=== PATIENT | female | born 1970 ===

== ENCOUNTER 2019-12-21 20:18 | Inpatient (IN) ==
[2019-12-22] MEDS ORDERED: DEXTROSE 10% 250 ML BAG IV PRN (00:31)
[2019-12-22] MEDS ORDERED: DOCUSATE SODIUM 100 MG CAPSULE PO PRN (00:31)
[2019-12-22] MEDS ORDERED: GLUCAGON 1 MG VIAL IM PRN (00:31)
[2019-12-22] MEDS ORDERED: ONDANSETRON 4 MG/2 ML VIAL IV PRN (00:31)
[2019-12-22 05:32] LABS: Basophils % 0.6 % (0.0-0.8); Eosinophils % 0.3 % (0.00-10.9); Hematocrit 37.8 VOL% (35.7-47.0); Hemoglobin 12.4 GM/DL (12.0-16.0); Immature Granulocytes % 0.6 %; Immature Granulocytes Absolute 0.02 #; Lymphocytes % 29.8 % (21.3-54.2); Mean Corpuscular HGB Conc 32.8 GM/DL (32-36); Mean Corpuscular Volume 83.1 FL (87-102); Mean Platelet Volume 10.7 FL (9.6-12.0); Monocytes % 8.8 % (1.7-12.7); Neutrophils % 59.9 % (38.7-73.9); Platelet Count 150 T/CUMM (130-400); Red Blood Count 4.55 MC/CUMM (3.8-5.5); Red Cell Distribution Width 13.6 % (9.3-17.3); White Blood Count 3.4 T/CUMM (4-12)
[2019-12-22] MEDS: ENOXAPARIN 40 MG/0.4 ML SYRINGE SUBCUT SCH (05:46)
[2019-12-22 05:52] LABS: Albumin 2.6 G/DL (3.4-5.0); Calcium 8.3 MG/DL (8.5-10.1); Osmolality,Calculated 280.4 MOS/KG (273-304); Total Protein 7.8 G/DL (6.4-8.3)
[2019-12-22 06:05] LABS: Lymphocytes 24 % (20-55); Platelet Estimate Adequate; Segmented Neutrophils 70 % (50-85); Total Cells Counted 100
[2019-12-22 06:14] LABS: Ferritin 941.3 ng/ml (8-252)
[2019-12-22] MEDS ORDERED: AZITHROMYCIN 250 MG TABLET PO SCH ×2 (09:00)
[2019-12-22] MEDS: HYDROXYCHLOROQUINE 200 MG TABLET PO SCH ×2 (09:01→21:35)
[2019-12-22] MEDS: ZINC SULFATE 220 MG CAPSULE PO SCH (09:01)
[2019-12-22] MEDS: INSULIN LISPRO 100 UNIT/ML SUBCUT SCH ×5 (09:57→21:51)
[2019-12-22] MEDS: PANTOPRAZOLE 40 MG TABLET PO SCH (11:11)
[2019-12-22] MEDS ORDERED: FLUTICASONE/SALMETEROL 100-50 DISKUS 14 DOSE INH PRN (14:50)
[2019-12-22] MEDS ORDERED: GABAPENTIN 300 MG CAPSULE PO PRN (14:50)
[2019-12-22] MEDS: ALBUTEROL INHALER 18 GM INH SCH ×3 (17:57→20:00)
[2019-12-22] MEDS: cefTRIAXone 1,000 MG in SYRINGE 1 EACH IV SCH (17:59)
[2019-12-22] MEDS: DOCUSATE SODIUM 100 MG CAPSULE PO SCH (21:34)
[2019-12-22] MEDS: SIMVASTATIN 20 MG TABLET PO SCH (21:35)
[2019-12-22] MEDS: INSULIN GLARGINE 100 UNIT/ML SUBCUT SCH (21:36)
[2019-12-23] MEDS: ALBUTEROL INHALER 18 GM INH SCH ×4 (01:05→21:20)
[2019-12-23 05:12] LABS: Basophils % 0.3 % (0.0-0.8); Hematocrit 38.9 VOL% (35.7-47.0); Hemoglobin 12.8 GM/DL (12.0-16.0); Immature Granulocytes % 0.5 %; Immature Granulocytes Absolute 0.02 #; Lymphocytes # 1.1 10*3/uL (1.4-4.0); Lymphocytes % 27.3 % (21.3-54.2); Mean Corpuscular HGB Conc 32.9 GM/DL (32-36); Mean Corpuscular Volume 83.5 FL (87-102); Mean Platelet Volume 10.4 FL (9.6-12.0); Neutrophils % 61.9 % (38.7-73.9); Platelet Count 184 T/CUMM (130-400); Red Blood Count 4.66 MC/CUMM (3.8-5.5); Red Cell Distribution Width 13.5 % (9.3-17.3)
[2019-12-23 05:42] LABS: Albumin 2.5 G/DL (3.4-5.0); Bilirubin,Total 1.3 MG/DL (0.2-1.0); Calcium 8.8 MG/DL (8.5-10.1); Osmolality,Calculated 265.5 MOS/KG (273-304); Total Protein 8.1 G/DL (6.4-8.3)
[2019-12-23] MEDS: ENOXAPARIN 40 MG/0.4 ML SYRINGE SUBCUT SCH (06:35)
[2019-12-23] MEDS: MELOXICAM 7.5 MG TABLET PO SCH (08:56)
[2019-12-23] MEDS: DOCUSATE SODIUM 100 MG CAPSULE PO SCH ×2 (08:56→21:20)
[2019-12-23] MEDS: PANTOPRAZOLE 40 MG TABLET PO SCH (08:56)
[2019-12-23] MEDS ORDERED: PANTOPRAZOLE 40 MG TABLET PO SCH (09:00)
[2019-12-23] MEDS: INSULIN LISPRO 100 UNIT/ML SUBCUT SCH ×6 (09:59→21:58)
[2019-12-23] MEDS: amLODIPine 5 MG TABLET PO SCH (10:59)
[2019-12-23] MEDS: HYDROXYCHLOROQUINE 200 MG TABLET PO SCH ×2 (10:59→21:20)
[2019-12-23] MEDS: cefTRIAXone 1,000 MG in SYRINGE 1 EACH IV SCH (17:29)
[2019-12-23] MEDS: SIMVASTATIN 20 MG TABLET PO SCH (21:20)
[2019-12-23] MEDS: INSULIN GLARGINE 100 UNIT/ML SUBCUT SCH (21:58)
[2019-12-24] MEDS: ALBUTEROL INHALER 18 GM INH SCH ×4 (00:20→20:42)
[2019-12-24] MEDS: ENOXAPARIN 40 MG/0.4 ML SYRINGE SUBCUT SCH (06:00)
[2019-12-24 06:13] LABS: Basophils % 0.2 % (0.0-0.8); Eosinophils % 0.6 % (0.00-10.9); Hemoglobin 12.5 GM/DL (12.0-16.0); Immature Granulocytes % 0.8 %; Immature Granulocytes Absolute 0.04 #; Lymphocytes # 1.1 10*3/uL (1.4-4.0); Lymphocytes % 23.1 % (21.3-54.2); Mean Corpuscular HGB Conc 32.1 GM/DL (32-36); Mean Corpuscular Volume 83.7 FL (87-102); Mean Platelet Volume 10.1 FL (9.6-12.0); Monocytes % 8.7 % (1.7-12.7); Neutrophils % 66.6 % (38.7-73.9); Platelet Count 231 T/CUMM (130-400); Red Blood Count 4.66 MC/CUMM (3.8-5.5); Red Cell Distribution Width 13.6 % (9.3-17.3); White Blood Count 4.7 T/CUMM (4-12)
[2019-12-24 07:11] LABS: Band Neutrophils 2 % (0-10); Lymphocytes 18 % (20-55); Segmented Neutrophils 69 % (50-85); Total Cells Counted 100
[2019-12-24 07:12] LABS: Hypochromasia 1+; Microcytosis Slight; Platelet Estimate Normal
[2019-12-24 08:28] LABS: Calcium 8.6 MG/DL (8.5-10.1); Osmolality,Calculated 265.5 MOS/KG (273-304)
[2019-12-24] MEDS: MELOXICAM 7.5 MG TABLET PO SCH (08:29)
[2019-12-24] MEDS: DOCUSATE SODIUM 100 MG CAPSULE PO SCH ×2 (08:29→20:43)
[2019-12-24] MEDS: ZINC SULFATE 220 MG CAPSULE PO SCH (08:29)
[2019-12-24] MEDS: PANTOPRAZOLE 40 MG TABLET PO SCH (08:29)
[2019-12-24] MEDS: amLODIPine 5 MG TABLET PO SCH (08:29)
[2019-12-24] MEDS: HYDROXYCHLOROQUINE 200 MG TABLET PO SCH ×2 (08:29→20:42)
[2019-12-24] MEDS: INSULIN LISPRO 100 UNIT/ML SUBCUT SCH ×6 (09:26→21:01)
[2019-12-24] MEDS ORDERED: ALUMINUM/MAGNES/SIMETH MAX STR 30 ML UDCUP PO PRN (12:45)
[2019-12-24] MEDS: cefTRIAXone 1,000 MG in SYRINGE 1 EACH IV SCH (18:54)
[2019-12-24] MEDS: SIMVASTATIN 20 MG TABLET PO SCH (20:42)
[2019-12-24] MEDS: INSULIN GLARGINE 100 UNIT/ML SUBCUT SCH (21:23)
[2019-12-25] MEDS: ALBUTEROL INHALER 18 GM INH SCH ×4 (01:16→21:46)
[2019-12-25] MEDS: ENOXAPARIN 40 MG/0.4 ML SYRINGE SUBCUT SCH (05:20)
[2019-12-25 06:35] LABS: Basophils % 0.2 % (0.0-0.8); Eosinophils # 0.1 10*3/uL (0.0-0.87); Hematocrit 38.4 VOL% (35.7-47.0); Hemoglobin 12.4 GM/DL (12.0-16.0); Immature Granulocytes % 0.9 %; Immature Granulocytes Absolute 0.05 #; Lymphocytes # 1.2 10*3/uL (1.4-4.0); Lymphocytes % 19.7 % (21.3-54.2); Mean Corpuscular HGB Conc 32.3 GM/DL (32-36); Mean Corpuscular Volume 84.6 FL (87-102); Mean Platelet Volume 9.9 FL (9.6-12.0); Monocytes % 8.6 % (1.7-12.7); Neutrophils % 69.6 % (38.7-73.9); Platelet Count 280 T/CUMM (130-400); Red Blood Count 4.54 MC/CUMM (3.8-5.5); Red Cell Distribution Width 13.4 % (9.3-17.3); White Blood Count 5.8 T/CUMM (4-12)
[2019-12-25 06:58] LABS: Calcium 8.5 MG/DL (8.5-10.1); Osmolality,Calculated 267.4 MOS/KG (273-304)
[2019-12-25 07:45] LABS: Platelet Estimate Normal
[2019-12-25] MEDS: DOCUSATE SODIUM 100 MG CAPSULE PO SCH ×2 (09:46→21:30)
[2019-12-25] MEDS: INSULIN LISPRO 100 UNIT/ML SUBCUT SCH ×6 (09:46→23:25)
[2019-12-25] MEDS: HYDROXYCHLOROQUINE 200 MG TABLET PO SCH ×2 (09:47→21:31)
[2019-12-25] MEDS: MELOXICAM 7.5 MG TABLET PO SCH (09:47)
[2019-12-25] MEDS: amLODIPine 5 MG TABLET PO SCH (09:47)
[2019-12-25] MEDS: PANTOPRAZOLE 40 MG TABLET PO SCH (09:47)
[2019-12-25] MEDS: cefTRIAXone 1,000 MG in SYRINGE 1 EACH IV SCH (18:55)
[2019-12-25] MEDS: SIMVASTATIN 20 MG TABLET PO SCH (21:31)
[2019-12-25] MEDS: INSULIN GLARGINE 100 UNIT/ML SUBCUT SCH (23:25)
[2019-12-26] MEDS: ALBUTEROL INHALER 18 GM INH SCH ×4 (01:16→19:05)
[2019-12-26] MEDS: ENOXAPARIN 40 MG/0.4 ML SYRINGE SUBCUT SCH (05:16)
[2019-12-26] MEDS: ACETAMINOPHEN 325 MG TABLET PO PRN (05:17)
[2019-12-26 07:21] LABS: Calcium 8.8 MG/DL (8.5-10.1); Osmolality,Calculated 266.4 MOS/KG (273-304)
[2019-12-26] MEDS ORDERED: PHENOL 1.4% THROAT SPRAY 177 ML BOTTLE PO PRN (09:41)
[2019-12-26] MEDS: DOCUSATE SODIUM 100 MG CAPSULE PO SCH ×3 (09:45→20:39)
[2019-12-26] MEDS: INSULIN LISPRO 100 UNIT/ML SUBCUT SCH ×6 (09:45→20:39)
[2019-12-26] MEDS: amLODIPine 5 MG TABLET PO SCH (09:46)
[2019-12-26] MEDS: HYDROXYCHLOROQUINE 200 MG TABLET PO SCH ×2 (09:46→20:39)
[2019-12-26] MEDS: MELOXICAM 7.5 MG TABLET PO SCH (09:46)
[2019-12-26] MEDS: PANTOPRAZOLE 40 MG TABLET PO SCH (09:46)
[2019-12-26] MEDS: ZINC SULFATE 220 MG CAPSULE PO SCH (09:47)
[2019-12-26] MEDS: cefTRIAXone 1,000 MG in SYRINGE 1 EACH IV SCH (17:19)
[2019-12-26] MEDS: INSULIN GLARGINE 100 UNIT/ML SUBCUT SCH (20:39)
[2019-12-26] MEDS: SIMVASTATIN 20 MG TABLET PO SCH (20:39)
[2019-12-27] MEDS: ALBUTEROL INHALER 18 GM INH SCH ×4 (01:58→18:55)
[2019-12-27] MEDS: ENOXAPARIN 40 MG/0.4 ML SYRINGE SUBCUT SCH (06:24)
[2019-12-27 07:23] LABS: Basophils % 0.4 % (0.0-0.8); Eosinophils # 0.2 10*3/uL (0.0-0.87); Eosinophils % 1.5 % (0.00-10.9); Hematocrit 37.7 VOL% (35.7-47.0); Hemoglobin 12.6 GM/DL (12.0-16.0); Immature Granulocytes % 2.5 %; Immature Granulocytes Absolute 0.25 #; Lymphocytes # 1.4 10*3/uL (1.4-4.0); Lymphocytes % 13.6 % (21.3-54.2); Mean Corpuscular HGB Conc 33.4 GM/DL (32-36); Mean Corpuscular Volume 81.6 FL (87-102); Mean Platelet Volume 9.5 FL (9.6-12.0); Monocytes % 8.1 % (1.7-12.7); Neutrophils % 73.9 % (38.7-73.9); Red Blood Count 4.62 MC/CUMM (3.8-5.5); Red Cell Distribution Width 13.3 % (9.3-17.3)
[2019-12-27 07:24] LABS: Calcium 9.1 MG/DL (8.5-10.1); Osmolality,Calculated 258.7 MOS/KG (273-304)
[2019-12-27 07:28] LABS: Platelet Count 410 T/CUMM (130-400)
[2019-12-27 07:50] LABS: Band Neutrophils 6 % (0-10); Eosinophils 2 % (0-10); Lymphocytes 12 % (20-55); Metamyelocytes 2 %; Nucleated Red Blood Cells 1 (0-5); Segmented Neutrophils 71 % (50-85); Total Cells Counted 100
[2019-12-27 07:51] LABS: Anisocytosis Slight; Platelet Estimate Normal
[2019-12-27] MEDS: INSULIN LISPRO 100 UNIT/ML SUBCUT SCH ×6 (08:39→22:47)
[2019-12-27] MEDS: DOCUSATE SODIUM 100 MG CAPSULE PO SCH ×2 (09:28→20:40)
[2019-12-27] MEDS: MELOXICAM 7.5 MG TABLET PO SCH (09:29)
[2019-12-27] MEDS: amLODIPine 5 MG TABLET PO SCH (09:29)
[2019-12-27] MEDS: HYDROXYCHLOROQUINE 200 MG TABLET PO SCH ×2 (09:29→20:40)
[2019-12-27] MEDS: PANTOPRAZOLE 40 MG TABLET PO SCH (09:30)
[2019-12-27] MEDS: cefTRIAXone 1,000 MG in SYRINGE 1 EACH IV SCH (17:00)
[2019-12-27] MEDS: SIMVASTATIN 20 MG TABLET PO SCH (20:40)
[2019-12-27] MEDS ORDERED: CYCLOBENZAPRINE 10 MG TABLET PO SCH (21:00)
[2019-12-27 21:19] LABS: ABG Base Excess -1.1 MMOL/L (-2.5-2.5); ABG HCO3 22.1 MMOL/L (20-26); ABG Oxygen Saturation 86.6 % (95-100); ABG PCO2 32.2 MM HG (35-48); ABG PH 7.454 (7.35-7.45); ABG PO2 51.5 MM HG (80-95); ABG TCO2 23.1 MMOL/L (23-27); Pt O2 Delivery Device Other
[2019-12-27] MEDS: INSULIN GLARGINE 100 UNIT/ML SUBCUT SCH (22:47)
[2019-12-28] MEDS: ALBUTEROL INHALER 18 GM INH SCH ×4 (00:55→23:55)
[2019-12-28] MEDS: ENOXAPARIN 40 MG/0.4 ML SYRINGE SUBCUT SCH (05:31)
[2019-12-28 07:28] LABS: Calcium 8.8 MG/DL (8.5-10.1); Osmolality,Calculated 253.2 MOS/KG (273-304)
[2019-12-28] MEDS: INSULIN LISPRO 100 UNIT/ML SUBCUT SCH ×6 (08:45→22:34)
[2019-12-28] MEDS: amLODIPine 5 MG TABLET PO SCH (08:46)
[2019-12-28] MEDS: MELOXICAM 7.5 MG TABLET PO SCH (08:46)
[2019-12-28] MEDS: DOCUSATE SODIUM 100 MG CAPSULE PO SCH ×2 (08:46→20:05)
[2019-12-28] MEDS: PANTOPRAZOLE 40 MG TABLET PO SCH (08:46)
[2019-12-28] MEDS: HYDROXYCHLOROQUINE 200 MG TABLET PO SCH ×2 (08:46→20:05)
[2019-12-28 10:42] LABS: ABG Base Excess 0.7 MMOL/L (-2.5-2.5); ABG HCO3 24.9 MMOL/L (20-26); ABG Oxygen Saturation 88.5 % (95-100); ABG PCO2 36.6 MM HG (35-48); ABG PH 7.435 (7.35-7.45); ABG PO2 54.4 MM HG (80-95); ABG TCO2 21.8 MMOL/L (23-27)
[2019-12-28] MEDS ORDERED: SUCCINYLCHOLINE 200 MG/10 ML VIAL ONE (11:43)
[2019-12-28] MEDS ORDERED: propofoL 200 MG/20 ML VIAL IV ONE (12:00)
[2019-12-28] MEDS ORDERED: SUCCINYLCHOLINE 200 MG/10 ML VIAL IV ONE (12:00)
[2019-12-28] MEDS ORDERED: fentaNYL 100 MCG/2 ML VIAL IV ONE (12:30)
[2019-12-28 13:02] LABS: ABG Base Excess -1.6 MMOL/L (-2.5-2.5); ABG Oxygen Saturation 93.3 % (95-100); ABG PCO2 47.7 MM HG (35-48); ABG PH 7.326 (7.35-7.45); ABG PO2 73.1 MM HG (80-95); ABG TCO2 22.1 MMOL/L (23-27)
[2019-12-28] MEDS ORDERED: SODIUM CHLORIDE 0.9% 1,000 ML IV PRN (13:06)
[2019-12-28] MEDS ORDERED: HEPARIN/NACL 0.9% 2 UNITS/ML 500 ML IV ONE (13:48)
[2019-12-28] MEDS: fentaNYL INJ 1,250 MCG in SODIUM CHLORIDE 0.9% 225 ML IV PRN (14:00)
[2019-12-28] MEDS ORDERED: HEPARIN/NACL 0.9% 2 UNITS/ML 500 ML IV SCH (14:00)
[2019-12-28 19:14] LABS: Allen Test Positive; Pt O2 Delivery Device Ventilator
[2019-12-28 19:18] LABS: ABG Base Excess -1.5 MMOL/L (-2.5-2.5); ABG HCO3 22.9 MMOL/L (20-26); ABG PCO2 40.7 MM HG (35-48); ABG PH 7.372 (7.35-7.45); ABG PO2 54.7 MM HG (80-95); ABG TCO2 21.1 MMOL/L (23-27)
[2019-12-28] MEDS: SIMVASTATIN 20 MG TABLET PO SCH (20:05)
[2019-12-28] MEDS: cefTRIAXone 1,000 MG in SYRINGE 1 EACH IV SCH (20:05)
[2019-12-28] MEDS ORDERED: CISATRACURIUM 200 MG in SODIUM CHLORIDE 0.9% 180 ML IV PRN (20:47)
[2019-12-28] MEDS: ROCURONIUM 500 MG in SODIUM CHLORIDE 0.9% 500 ML IV PRN (21:22)
[2019-12-28] MEDS ORDERED: DOPamine 800 MG/250 ML PREMIX IV PRN (22:21)
[2019-12-28] MEDS: INSULIN GLARGINE 100 UNIT/ML SUBCUT SCH (22:34)
[2019-12-29] MEDS: INSULIN LISPRO 100 UNIT/ML SUBCUT SCH ×6 (00:32→21:19)
[2019-12-29] MEDS: fentaNYL INJ 1,250 MCG in SODIUM CHLORIDE 0.9% 225 ML IV PRN ×2 (01:41→16:25)
[2019-12-29 04:40] LABS: ABG Base Excess -3.5 MMOL/L (-2.5-2.5); ABG HCO3 23.5 MMOL/L (20-26); ABG Oxygen Saturation 94.3 % (95-100); ABG PCO2 51.6 MM HG (35-48); ABG PH 7.277 (7.35-7.45); ABG PO2 78.6 MM HG (80-95); ABG TCO2 25.1 MMOL/L (23-27); Allen Test Positive; Pt O2 Delivery Device Ventilator
[2019-12-29 06:04] LABS: Basophils % 0.4 % (0.0-0.8); Eosinophils # 0.3 10*3/uL (0.0-0.87); Eosinophils % 2.4 % (0.00-10.9); Hematocrit 32.8 VOL% (35.7-47.0); Hemoglobin 10.5 GM/DL (12.0-16.0); Immature Granulocytes % 4.3 %; Immature Granulocytes Absolute 0.47 #; Lymphocytes # 1.1 10*3/uL (1.4-4.0); Lymphocytes % 10.1 % (21.3-54.2); Mean Corpuscular Volume 84.8 FL (87-102); Mean Platelet Volume 9.1 FL (9.6-12.0); Monocytes % 9.4 % (1.7-12.7); Neutrophils % 73.4 % (38.7-73.9); Platelet Count 351 T/CUMM (130-400); Red Blood Count 3.87 MC/CUMM (3.8-5.5); Red Cell Distribution Width 13.3 % (9.3-17.3)
[2019-12-29] MEDS: ALBUTEROL INHALER 18 GM INH SCH ×3 (06:10→21:52)
[2019-12-29] MEDS: ENOXAPARIN 40 MG/0.4 ML SYRINGE SUBCUT SCH (06:11)
[2019-12-29] MEDS ORDERED: GLUCAGON 1 MG VIAL IM PRN (08:11)
[2019-12-29] MEDS ORDERED: DEXTROSE 50% 25 GM/50 ML VIAL IV PRN (08:11)
[2019-12-29] MEDS: DOCUSATE SODIUM 100 MG CAPSULE PO SCH ×2 (08:38→21:19)
[2019-12-29] MEDS: PANTOPRAZOLE 40 MG VIAL IV SCH (08:38)
[2019-12-29] MEDS: HYDROXYCHLOROQUINE 200 MG TABLET PO SCH ×2 (08:38→21:19)
[2019-12-29] MEDS ORDERED: ETOMIDATE 20 MG/10 ML VIAL IV ONE (09:53)
[2019-12-29] MEDS ORDERED: SUCCINYLCHOLINE 200 MG/10 ML VIAL ONE (09:55)
[2019-12-29] MEDS: methylPREDNISolone SOD SUC 40 MG/1 ML VIAL IV SCH ×2 (10:00→17:41)
[2019-12-29] MEDS: ENOXAPARIN 100 MG/ML SYRINGE SUBCUT SCH ×2 (12:20→21:19)
[2019-12-29] MEDS: ROCURONIUM 500 MG in SODIUM CHLORIDE 0.9% 500 ML IV PRN (12:20)
[2019-12-29] MEDS: cefTRIAXone 1,000 MG in SYRINGE 1 EACH IV SCH (17:39)
[2019-12-29] MEDS: SIMVASTATIN 20 MG TABLET PO SCH (21:19)
[2019-12-29] MEDS: INSULIN GLARGINE 100 UNIT/ML SUBCUT SCH (21:19)
[2019-12-29 21:53] LABS: Calcium 8.3 MG/DL (8.5-10.1); Osmolality,Calculated 270.9 MOS/KG (273-304)
[2019-12-30] MEDS: INSULIN LISPRO 100 UNIT/ML SUBCUT SCH ×7 (00:45→23:49)
[2019-12-30] MEDS: ALBUTEROL INHALER 18 GM INH SCH ×4 (00:46→21:30)
[2019-12-30] MEDS: methylPREDNISolone SOD SUC 40 MG/1 ML VIAL IV SCH ×3 (01:07→17:51)
[2019-12-30] MEDS: ROCURONIUM 500 MG in SODIUM CHLORIDE 0.9% 500 ML IV PRN (03:17)
[2019-12-30 05:28] LABS: Basophils % 0.3 % (0.0-0.8); Hematocrit 31.9 VOL% (35.7-47.0); Hemoglobin 10.4 GM/DL (12.0-16.0); Immature Granulocytes % 5.3 %; Immature Granulocytes Absolute 0.49 #; Lymphocytes # 0.7 10*3/uL (1.4-4.0); Mean Corpuscular HGB Conc 32.6 GM/DL (32-36); Mean Corpuscular Volume 83.5 FL (87-102); Mean Platelet Volume 9.1 FL (9.6-12.0); Monocytes % 7.8 % (1.7-12.7); Neutrophils % 78.6 % (38.7-73.9); Platelet Count 388 T/CUMM (130-400); Red Blood Count 3.82 MC/CUMM (3.8-5.5); Red Cell Distribution Width 12.9 % (9.3-17.3); White Blood Count 9.2 T/CUMM (4-12)
[2019-12-30 05:54] LABS: Calcium 8.2 MG/DL (8.5-10.1); Osmolality,Calculated 270.1 MOS/KG (273-304)
[2019-12-30 05:57] LABS: Band Neutrophils 2 % (0-10); Hypochromasia 1+; Lymphocytes 4 % (20-55); Platelet Estimate Adequate; Segmented Neutrophils 85 % (50-85); Total Cells Counted 100
[2019-12-30] MEDS: fentaNYL INJ 1,250 MCG in SODIUM CHLORIDE 0.9% 225 ML IV PRN (06:36)
[2019-12-30 08:56] LABS: ABG HCO3 18.4 MMOL/L (20-26); ABG Oxygen Saturation 98.6 % (95-100); ABG PCO2 46.1 MM HG (35-48); ABG PH 7.219 (7.35-7.45); ABG PO2 162.2 MM HG (80-95); ABG TCO2 19.8 MMOL/L (23-27); Allen Test Positive; Pt O2 Delivery Device Ventilator
[2019-12-30] MEDS: ENOXAPARIN 100 MG/ML SYRINGE SUBCUT SCH ×2 (09:34→21:30)
[2019-12-30] MEDS: HYDROXYCHLOROQUINE 200 MG TABLET PO SCH ×2 (09:34→21:30)
[2019-12-30] MEDS: DOCUSATE SODIUM 100 MG CAPSULE PO SCH ×2 (09:34→21:30)
[2019-12-30] MEDS: ZINC GLUCONATE 50 MG TABLET PO SCH (09:35)
[2019-12-30] MEDS: PANTOPRAZOLE 40 MG VIAL IV SCH (09:35)
[2019-12-30] MEDS: cefTRIAXone 1,000 MG in SYRINGE 1 EACH IV SCH (17:51)
[2019-12-30] MEDS: SIMVASTATIN 20 MG TABLET PO SCH (21:30)
[2019-12-30] MEDS: INSULIN GLARGINE 100 UNIT/ML SUBCUT SCH (21:30)
[2019-12-31] MEDS: methylPREDNISolone SOD SUC 40 MG/1 ML VIAL IV SCH ×3 (01:10→18:15)
[2019-12-31] MEDS: ALBUTEROL INHALER 18 GM INH SCH ×4 (01:55→20:07)
[2019-12-31 05:40] LABS: Hematocrit 29.7 VOL% (35.7-47.0); Hemoglobin 9.8 GM/DL (12.0-16.0); Immature Granulocytes % 5.3 %; Immature Granulocytes Absolute 0.49 #; Lymphocytes # 0.6 10*3/uL (1.4-4.0); Mean Corpuscular Volume 82.7 FL (87-102); Mean Platelet Volume 9.3 FL (9.6-12.0); Monocytes % 10.2 % (1.7-12.7); Neutrophils % 77.5 % (38.7-73.9); Platelet Count 417 T/CUMM (130-400); Red Blood Count 3.59 MC/CUMM (3.8-5.5); Red Cell Distribution Width 13.1 % (9.3-17.3); White Blood Count 9.2 T/CUMM (4-12)
[2019-12-31 06:01] LABS: Band Neutrophils 2 % (0-10); Hypochromasia 1+; Lymphocytes 9 % (20-55); Platelet Estimate Adequate; Segmented Neutrophils 80 % (50-85); Total Cells Counted 100
[2019-12-31 06:04] LABS: Calcium 8.3 MG/DL (8.5-10.1); Osmolality,Calculated 281.7 MOS/KG (273-304)
[2019-12-31] MEDS: INSULIN LISPRO 100 UNIT/ML SUBCUT SCH ×5 (06:27→20:08)
[2019-12-31] MEDS: fentaNYL INJ 1,250 MCG in SODIUM CHLORIDE 0.9% 225 ML IV PRN (09:15)
[2019-12-31] MEDS: PANTOPRAZOLE 40 MG VIAL IV SCH (09:40)
[2019-12-31] MEDS: DOCUSATE SODIUM 100 MG CAPSULE PO SCH ×2 (09:45→20:07)
[2019-12-31] MEDS: ZINC GLUCONATE 50 MG TABLET PO SCH (09:45)
[2019-12-31] MEDS: HYDROXYCHLOROQUINE 200 MG TABLET PO SCH ×2 (09:45→20:08)
[2019-12-31 10:30] LABS: ABG Base Excess -8.9 MMOL/L (-2.5-2.5); ABG HCO3 17.2 MMOL/L (20-26); ABG Oxygen Saturation 89.5 % (95-100); ABG PCO2 43.3 MM HG (35-48); ABG PH 7.236 (7.35-7.45); ABG PO2 64.3 MM HG (80-95)
[2019-12-31] MEDS: cefTRIAXone 1,000 MG in SYRINGE 1 EACH IV SCH (18:15)
[2019-12-31] MEDS: SIMVASTATIN 20 MG TABLET PO SCH (20:08)
[2019-12-31] MEDS: INSULIN GLARGINE 100 UNIT/ML SUBCUT SCH (20:08)
[2019-12-31] MEDS: ENOXAPARIN 100 MG/ML SYRINGE SUBCUT SCH (20:08)
[2020-01-01] MEDS: INSULIN LISPRO 100 UNIT/ML SUBCUT SCH ×7 (00:05→23:49)
[2020-01-01] MEDS: fentaNYL INJ 1,250 MCG in SODIUM CHLORIDE 0.9% 225 ML IV PRN ×3 (02:18→19:05)
[2020-01-01] MEDS: ALBUTEROL INHALER 18 GM INH SCH ×3 (02:18→13:00)
[2020-01-01] MEDS: methylPREDNISolone SOD SUC 40 MG/1 ML VIAL IV SCH ×3 (02:18→18:15)
[2020-01-01 04:13] LABS: ABG Base Excess -8.4 MMOL/L (-2.5-2.5); ABG HCO3 17.6 MMOL/L (20-26); ABG Oxygen Saturation 96.1 % (95-100); ABG PCO2 50.3 MM HG (35-48); ABG PO2 91.2 MM HG (80-95); ABG TCO2 18.4 MMOL/L (23-27)
[2020-01-01 04:32] LABS: Basophils % 0.3 % (0.0-0.8); Hematocrit 33.7 VOL% (35.7-47.0); Hemoglobin 10.9 GM/DL (12.0-16.0); Immature Granulocytes % 6.1 %; Immature Granulocytes Absolute 0.71 #; Lymphocytes # 0.5 10*3/uL (1.4-4.0); Lymphocytes % 4.5 % (21.3-54.2); Mean Corpuscular HGB Conc 32.3 GM/DL (32-36); Mean Corpuscular Volume 83.6 FL (87-102); Mean Platelet Volume 9.2 FL (9.6-12.0); Monocytes % 11.4 % (1.7-12.7); Neutrophils % 77.7 % (38.7-73.9); Platelet Count 455 T/CUMM (130-400); Red Blood Count 4.03 MC/CUMM (3.8-5.5); Red Cell Distribution Width 13.6 % (9.3-17.3); White Blood Count 11.6 T/CUMM (4-12)
[2020-01-01 05:04] LABS: Lymphocytes 5 % (20-55); Segmented Neutrophils 85 % (50-85); Total Cells Counted 100
[2020-01-01 05:07] LABS: Calcium 8.6 MG/DL (8.5-10.1); Osmolality,Calculated 295.4 MOS/KG (273-304)
[2020-01-01 05:22] LABS: ABG PH 7.202 (7.35-7.45)
[2020-01-01 05:22] LABS: Hypochromasia 1+; Platelet Estimate Increased
[2020-01-01] MEDS: ZINC GLUCONATE 50 MG TABLET PO SCH (08:50)
[2020-01-01] MEDS: DOCUSATE SODIUM 100 MG CAPSULE PO SCH (08:50)
[2020-01-01] MEDS: HYDROXYCHLOROQUINE 200 MG TABLET PO SCH ×2 (08:50→21:31)
[2020-01-01] MEDS: PANTOPRAZOLE 40 MG VIAL IV SCH (08:50)
[2020-01-01] MEDS: cefTRIAXone 1,000 MG in SYRINGE 1 EACH IV SCH (18:15)
[2020-01-01] MEDS: SIMVASTATIN 20 MG TABLET PO SCH (21:31)
[2020-01-01] MEDS: INSULIN GLARGINE 100 UNIT/ML SUBCUT SCH (21:31)
[2020-01-01] MEDS: DOCUSATE SODIUM 100 MG/10 ML UDCUP PO SCH (21:31)
[2020-01-01] MEDS: ENOXAPARIN 100 MG/ML SYRINGE SUBCUT SCH (21:31)
[2020-01-02] MEDS: methylPREDNISolone SOD SUC 40 MG/1 ML VIAL IV SCH ×2 (02:33→14:50)
[2020-01-02 03:20] LABS: Allen Test Positive; Pt O2 Delivery Device Ventilator
[2020-01-02 03:21] LABS: ABG Base Excess -4.7 MMOL/L (-2.5-2.5); ABG HCO3 20.4 MMOL/L (20-26); ABG Oxygen Saturation 92.4 % (95-100); ABG PCO2 47.9 MM HG (35-48); ABG PH 7.276 (7.35-7.45); ABG PO2 68.1 MM HG (80-95); ABG TCO2 20.4 MMOL/L (23-27)
[2020-01-02 04:40] LABS: Basophils % 0.3 % (0.0-0.8); Hematocrit 31.9 VOL% (35.7-47.0); Hemoglobin 10.1 GM/DL (12.0-16.0); Immature Granulocytes % 2.7 %; Immature Granulocytes Absolute 0.36 #; Lymphocytes # 0.7 10*3/uL (1.4-4.0); Lymphocytes % 5.1 % (21.3-54.2); Mean Corpuscular HGB Conc 31.7 GM/DL (32-36); Mean Corpuscular Volume 86.4 FL (87-102); Mean Platelet Volume 9.2 FL (9.6-12.0); Monocytes % 13.7 % (1.7-12.7); Neutrophils % 78.2 % (38.7-73.9); Platelet Count 350 T/CUMM (130-400); Red Blood Count 3.69 MC/CUMM (3.8-5.5); White Blood Count 13.2 T/CUMM (4-12)
[2020-01-02 04:52] LABS: Calcium 8.9 MG/DL (8.5-10.1); Osmolality,Calculated 305.5 MOS/KG (273-304)
[2020-01-02] MEDS: fentaNYL INJ 1,250 MCG in SODIUM CHLORIDE 0.9% 225 ML IV PRN ×3 (05:30→23:28)
[2020-01-02] MEDS: INSULIN LISPRO 100 UNIT/ML SUBCUT SCH ×5 (06:06→20:57)
[2020-01-02] MEDS: DOCUSATE SODIUM 100 MG/10 ML UDCUP PO SCH ×2 (08:55→20:57)
[2020-01-02] MEDS: HYDROXYCHLOROQUINE 200 MG TABLET PO SCH ×2 (08:55→20:58)
[2020-01-02] MEDS: PANTOPRAZOLE 40 MG VIAL IV SCH (08:56)
[2020-01-02] MEDS: ZINC GLUCONATE 50 MG TABLET PO SCH (08:56)
[2020-01-02] MEDS: cefTRIAXone 1,000 MG in SYRINGE 1 EACH IV SCH (18:30)
[2020-01-02] MEDS: INSULIN GLARGINE 100 UNIT/ML SUBCUT SCH (20:58)
[2020-01-02] MEDS: ENOXAPARIN 100 MG/ML SYRINGE SUBCUT SCH (20:58)
[2020-01-02] MEDS: SIMVASTATIN 20 MG TABLET PO SCH (20:58)
[2020-01-03] MEDS: INSULIN LISPRO 100 UNIT/ML SUBCUT SCH ×7 (00:32→21:17)
[2020-01-03] MEDS: methylPREDNISolone SOD SUC 40 MG/1 ML VIAL IV SCH ×2 (03:45→15:55)
[2020-01-03 04:33] LABS: ABG Base Excess -3.3 MMOL/L (-2.5-2.5); ABG HCO3 21.5 MMOL/L (20-26); ABG Oxygen Saturation 98.7 % (95-100); ABG PCO2 37.3 MM HG (35-48); ABG PH 7.378 (7.35-7.45); ABG PO2 153.2 MM HG (80-95); ABG TCO2 22.6 MMOL/L (23-27); Allen Test Positive; Pt O2 Delivery Device Ventilator
[2020-01-03 04:38] LABS: Basophils % 0.3 % (0.0-0.8); Hematocrit 28.1 VOL% (35.7-47.0); Hemoglobin 8.8 GM/DL (12.0-16.0); Immature Granulocytes % 4.7 %; Immature Granulocytes Absolute 0.47 #; Lymphocytes # 1.4 10*3/uL (1.4-4.0); Lymphocytes % 14.2 % (21.3-54.2); Mean Corpuscular HGB Conc 31.3 GM/DL (32-36); Mean Corpuscular Volume 86.7 FL (87-102); Mean Platelet Volume 9.6 FL (9.6-12.0); Monocytes % 11.4 % (1.7-12.7); NRBC # 0.02 10*3/uL; Neutrophils % 69.4 % (38.7-73.9); Platelet Count 277 T/CUMM (130-400); Red Blood Count 3.24 MC/CUMM (3.8-5.5); Red Cell Distribution Width 14.1 % (9.3-17.3)
[2020-01-03 04:51] LABS: Calcium 9.2 MG/DL (8.5-10.1); Osmolality,Calculated 304.8 MOS/KG (273-304)
[2020-01-03] MEDS: PANTOPRAZOLE 40 MG VIAL IV SCH (08:32)
[2020-01-03] MEDS: DOCUSATE SODIUM 100 MG/10 ML UDCUP PO SCH ×2 (08:32→21:17)
[2020-01-03] MEDS: HYDROXYCHLOROQUINE 200 MG TABLET PO SCH ×2 (08:32→21:19)
[2020-01-03] MEDS: fentaNYL INJ 1,250 MCG in SODIUM CHLORIDE 0.9% 225 ML IV PRN ×2 (09:48→19:30)
[2020-01-03] MEDS: ZINC GLUCONATE 50 MG TABLET PO SCH (12:00)
[2020-01-03] MEDS: INSULIN GLARGINE 100 UNIT/ML SUBCUT SCH (21:18)
[2020-01-03] MEDS: ENOXAPARIN 100 MG/ML SYRINGE SUBCUT SCH (21:18)
[2020-01-03] MEDS: SIMVASTATIN 20 MG TABLET PO SCH (21:19)
[2020-01-04] MEDS: INSULIN LISPRO 100 UNIT/ML SUBCUT SCH ×6 (01:07→21:34)
[2020-01-04] MEDS: fentaNYL INJ 1,250 MCG in SODIUM CHLORIDE 0.9% 225 ML IV PRN ×3 (04:35→20:52)
[2020-01-04] MEDS: methylPREDNISolone SOD SUC 40 MG/1 ML VIAL IV SCH ×2 (05:17→18:23)
[2020-01-04 05:52] LABS: Basophils % 0.3 % (0.0-0.8); Hematocrit 29.4 VOL% (35.7-47.0); Hemoglobin 8.9 GM/DL (12.0-16.0); Immature Granulocytes % 6.4 %; Immature Granulocytes Absolute 0.67 #; Lymphocytes # 1.7 10*3/uL (1.4-4.0); Lymphocytes % 16.4 % (21.3-54.2); Mean Corpuscular HGB Conc 30.3 GM/DL (32-36); Mean Corpuscular Volume 90.2 FL (87-102); Mean Platelet Volume 9.7 FL (9.6-12.0); Monocytes % 10.6 % (1.7-12.7); NRBC # 0.03 10*3/uL; Neutrophils % 66.3 % (38.7-73.9); Platelet Count 274 T/CUMM (130-400); Red Blood Count 3.26 MC/CUMM (3.8-5.5); Red Cell Distribution Width 13.9 % (9.3-17.3); White Blood Count 10.6 T/CUMM (4-12)
[2020-01-04 06:09] LABS: Osmolality,Calculated 306.6 MOS/KG (273-304)
[2020-01-04 06:12] LABS: Band Neutrophils 2 % (0-10); Hypochromasia Slight; Lymphocytes 14 % (20-55); Platelet Estimate Adequate; Segmented Neutrophils 80 % (50-85); Total Cells Counted 100
[2020-01-04] MEDS: hydrALAZINE 20 MG/1 ML VIAL IV PRN (08:07)
[2020-01-04] MEDS: PANTOPRAZOLE 40 MG VIAL IV SCH (08:40)
[2020-01-04] MEDS: DOCUSATE SODIUM 100 MG/10 ML UDCUP PO SCH ×2 (08:40→21:34)
[2020-01-04] MEDS: HYDROXYCHLOROQUINE 200 MG TABLET PO SCH ×2 (08:42→21:34)
[2020-01-04] MEDS: ZINC GLUCONATE 50 MG TABLET PO SCH (08:42)
[2020-01-04 09:23] LABS: ABG Base Excess -3.8 MMOL/L (-2.5-2.5); ABG HCO3 21.2 MMOL/L (20-26); ABG Oxygen Saturation 97.9 % (95-100); ABG PCO2 44.2 MM HG (35-48); ABG PH 7.312 (7.35-7.45); ABG TCO2 20.4 MMOL/L (23-27)
[2020-01-04] MEDS: SIMVASTATIN 20 MG TABLET PO SCH (21:34)
[2020-01-04] MEDS: INSULIN GLARGINE 100 UNIT/ML SUBCUT SCH (21:34)
[2020-01-04] MEDS: ENOXAPARIN 100 MG/ML SYRINGE SUBCUT SCH (21:34)
[2020-01-05] MEDS: INSULIN LISPRO 100 UNIT/ML SUBCUT SCH ×6 (01:16→21:07)
[2020-01-05] MEDS: methylPREDNISolone SOD SUC 40 MG/1 ML VIAL IV SCH ×2 (03:11→14:08)
[2020-01-05] MEDS: fentaNYL INJ 1,250 MCG in SODIUM CHLORIDE 0.9% 225 ML IV PRN ×2 (03:36→20:30)
[2020-01-05 06:10] LABS: Basophils % 0.2 % (0.0-0.8); Eosinophils % 0.2 % (0.00-10.9); Hematocrit 28.5 VOL% (35.7-47.0); Hemoglobin 8.4 GM/DL (12.0-16.0); Immature Granulocytes % 6.5 %; Immature Granulocytes Absolute 0.57 #; Lymphocytes # 1.1 10*3/uL (1.4-4.0); Lymphocytes % 12.8 % (21.3-54.2); Mean Corpuscular HGB Conc 29.5 GM/DL (32-36); Mean Corpuscular Volume 92.2 FL (87-102); Mean Platelet Volume 9.7 FL (9.6-12.0); Monocytes % 8.8 % (1.7-12.7); Neutrophils % 71.5 % (38.7-73.9); Platelet Count 279 T/CUMM (130-400); Red Blood Count 3.09 MC/CUMM (3.8-5.5); Red Cell Distribution Width 13.9 % (9.3-17.3); White Blood Count 8.7 T/CUMM (4-12)
[2020-01-05 06:29] LABS: Calcium 9.2 MG/DL (8.5-10.1); Osmolality,Calculated 298.8 MOS/KG (273-304)
[2020-01-05 06:38] LABS: Band Neutrophils 3 % (0-10); Lymphocytes 9 % (20-55); Metamyelocytes 1 %; Myelocytes 1 %; Nucleated Red Blood Cells 1 (0-5); Segmented Neutrophils 77 % (50-85); Total Cells Counted 100
[2020-01-05 06:39] LABS: Hypochromasia 1+; Microcytosis Slight; Platelet Estimate Normal
[2020-01-05] MEDS: PANTOPRAZOLE 40 MG VIAL IV SCH (09:05)
[2020-01-05] MEDS: ZINC GLUCONATE 50 MG TABLET PO SCH (09:05)
[2020-01-05] MEDS: DOCUSATE SODIUM 100 MG/10 ML UDCUP PO SCH ×2 (09:05→21:07)
[2020-01-05] MEDS: HYDROXYCHLOROQUINE 200 MG TABLET PO SCH ×2 (09:05→21:08)
[2020-01-05 09:09] LABS: ABG Base Excess -4.6 MMOL/L (-2.5-2.5); ABG HCO3 20.3 MMOL/L (20-26); ABG Oxygen Saturation 98.1 % (95-100); ABG PCO2 36.5 MM HG (35-48); ABG PH 7.362 (7.35-7.45); ABG PO2 136.3 MM HG (80-95); ABG TCO2 21.4 MMOL/L (23-27); Pt O2 Delivery Device Ventilator
[2020-01-05] MEDS: INSULIN GLARGINE 100 UNIT/ML SUBCUT SCH (21:07)
[2020-01-05] MEDS: ENOXAPARIN 100 MG/ML SYRINGE SUBCUT SCH (21:08)
[2020-01-05] MEDS: SIMVASTATIN 20 MG TABLET PO SCH (21:08)
[2020-01-06] MEDS: INSULIN LISPRO 100 UNIT/ML SUBCUT SCH ×6 (00:34→20:52)
[2020-01-06 03:46] LABS: ABG HCO3 21.3 MMOL/L (20-26); ABG Oxygen Saturation 97.1 % (95-100); ABG PCO2 39.5 MM HG (35-48); ABG PH 7.349 (7.35-7.45); ABG TCO2 22.5 MMOL/L (23-27); Allen Test Positive; Pt O2 Delivery Device Ventilator
[2020-01-06] MEDS: methylPREDNISolone SOD SUC 40 MG/1 ML VIAL IV SCH ×2 (03:59→14:41)
[2020-01-06 04:55] LABS: Basophils % 0.3 % (0.0-0.8); Eosinophils % 0.1 % (0.00-10.9); Hematocrit 31.4 VOL% (35.7-47.0); Hemoglobin 9.6 GM/DL (12.0-16.0); Immature Granulocytes % 5.9 %; Immature Granulocytes Absolute 0.84 #; Lymphocytes # 1.8 10*3/uL (1.4-4.0); Lymphocytes % 12.9 % (21.3-54.2); Mean Corpuscular HGB Conc 30.6 GM/DL (32-36); Mean Corpuscular Volume 90.2 FL (87-102); Mean Platelet Volume 10.1 FL (9.6-12.0); Monocytes % 11.8 % (1.7-12.7); Platelet Count 299 T/CUMM (130-400); Red Blood Count 3.48 MC/CUMM (3.8-5.5); Red Cell Distribution Width 14.2 % (9.3-17.3); White Blood Count 14.3 T/CUMM (4-12)
[2020-01-06 05:09] LABS: Albumin 2.1 G/DL (3.4-5.0); Bilirubin,Total 0.4 MG/DL (0.2-1.0); Calcium 9.2 MG/DL (8.5-10.1); Osmolality,Calculated 293.1 MOS/KG (273-304); Total Protein 7.7 G/DL (6.4-8.3)
[2020-01-06 05:24] LABS: Band Neutrophils 3 % (0-10); Hypochromasia 1+; Lymphocytes 19 % (20-55); Microcytosis Slight; Ovalocytes Slight; Platelet Estimate Adequate; Segmented Neutrophils 70 % (50-85); Total Cells Counted 100
[2020-01-06] MEDS: fentaNYL INJ 1,250 MCG in SODIUM CHLORIDE 0.9% 225 ML IV PRN ×2 (05:51→17:05)
[2020-01-06] MEDS: DOCUSATE SODIUM 100 MG/10 ML UDCUP PO SCH ×2 (08:13→21:15)
[2020-01-06] MEDS: PANTOPRAZOLE 40 MG VIAL IV SCH (08:13)
[2020-01-06] MEDS: hydrALAZINE 20 MG/1 ML VIAL IV PRN (09:34)
[2020-01-06] MEDS: HYDROXYCHLOROQUINE 200 MG TABLET PO SCH ×2 (09:35→21:15)
[2020-01-06] MEDS: ZINC GLUCONATE 50 MG TABLET PO SCH (09:35)
[2020-01-06] MEDS: INSULIN GLARGINE 100 UNIT/ML SUBCUT SCH (21:15)
[2020-01-06] MEDS: ENOXAPARIN 60 MG/0.6 ML SYRINGE SUBCUT SCH (21:15)
[2020-01-06] MEDS: SIMVASTATIN 20 MG TABLET PO SCH (21:15)
[2020-01-07] MEDS: INSULIN LISPRO 100 UNIT/ML SUBCUT SCH ×6 (00:55→21:33)
[2020-01-07] MEDS: fentaNYL INJ 1,250 MCG in SODIUM CHLORIDE 0.9% 225 ML IV PRN ×2 (03:25→14:42)
[2020-01-07] MEDS: methylPREDNISolone SOD SUC 40 MG/1 ML VIAL IV SCH ×2 (04:03→14:46)
[2020-01-07 05:44] LABS: Basophils % 0.3 % (0.0-0.8); Eosinophils % 0.3 % (0.00-10.9); Hematocrit 30.2 VOL% (35.7-47.0); Hemoglobin 8.9 GM/DL (12.0-16.0); Immature Granulocytes % 1.6 %; Immature Granulocytes Absolute 0.24 #; Lymphocytes # 1.4 10*3/uL (1.4-4.0); Lymphocytes % 9.7 % (21.3-54.2); Mean Corpuscular HGB Conc 29.5 GM/DL (32-36); Mean Corpuscular Volume 93.2 FL (87-102); Monocytes % 6.9 % (1.7-12.7); Neutrophils % 81.2 % (38.7-73.9); Platelet Count 239 T/CUMM (130-400); Red Blood Count 3.24 MC/CUMM (3.8-5.5); Red Cell Distribution Width 14.6 % (9.3-17.3); White Blood Count 14.6 T/CUMM (4-12)
[2020-01-07 06:05] LABS: Calcium 9.1 MG/DL (8.5-10.1)
[2020-01-07] MEDS: HYDROXYCHLOROQUINE 200 MG TABLET PO SCH ×2 (09:45→21:34)
[2020-01-07] MEDS: DOCUSATE SODIUM 100 MG/10 ML UDCUP PO SCH ×2 (09:45→21:34)
[2020-01-07] MEDS: PANTOPRAZOLE 40 MG VIAL IV SCH (09:45)
[2020-01-07] MEDS: ZINC GLUCONATE 50 MG TABLET PO SCH (09:45)
[2020-01-07] MEDS: ENOXAPARIN 60 MG/0.6 ML SYRINGE SUBCUT SCH ×2 (09:55→21:32)
[2020-01-07] MEDS: SIMVASTATIN 20 MG TABLET PO SCH (21:34)
[2020-01-07] MEDS: INSULIN GLARGINE 100 UNIT/ML SUBCUT SCH (21:34)
[2020-01-08] MEDS: INSULIN LISPRO 100 UNIT/ML SUBCUT SCH ×6 (01:25→20:32)
[2020-01-08] MEDS: methylPREDNISolone SOD SUC 40 MG/1 ML VIAL IV SCH (03:30)
[2020-01-08] MEDS: fentaNYL INJ 1,250 MCG in SODIUM CHLORIDE 0.9% 225 ML IV PRN ×3 (03:40→20:49)
[2020-01-08 05:25] LABS: Basophils % 0.1 % (0.0-0.8); Eosinophils % 0.3 % (0.00-10.9); Hematocrit 30.3 VOL% (35.7-47.0); Hemoglobin 8.9 GM/DL (12.0-16.0); Immature Granulocytes % 1.9 %; Immature Granulocytes Absolute 0.26 #; Lymphocytes # 1.3 10*3/uL (1.4-4.0); Lymphocytes % 9.6 % (21.3-54.2); Mean Corpuscular HGB Conc 29.4 GM/DL (32-36); Mean Corpuscular Volume 93.5 FL (87-102); Mean Platelet Volume 10.4 FL (9.6-12.0); Neutrophils % 80.1 % (38.7-73.9); Platelet Count 229 T/CUMM (130-400); Red Blood Count 3.24 MC/CUMM (3.8-5.5); Red Cell Distribution Width 14.5 % (9.3-17.3); White Blood Count 13.4 T/CUMM (4-12)
[2020-01-08] MEDS: PANTOPRAZOLE 40 MG VIAL IV SCH (08:02)
[2020-01-08] MEDS: ENOXAPARIN 60 MG/0.6 ML SYRINGE SUBCUT SCH ×2 (08:02→20:25)
[2020-01-08] MEDS: DOCUSATE SODIUM 100 MG/10 ML UDCUP PO SCH ×2 (09:53→20:25)
[2020-01-08] MEDS: ZINC GLUCONATE 50 MG TABLET PO SCH (09:54)
[2020-01-08] MEDS: HYDROXYCHLOROQUINE 200 MG TABLET PO SCH ×2 (09:54→20:26)
[2020-01-08 10:45] LABS: ABG Base Excess -7.2 MMOL/L (-2.5-2.5); ABG HCO3 18.5 MMOL/L (20-26); ABG Oxygen Saturation 95.6 % (95-100); ABG PCO2 45.9 MM HG (35-48); ABG PH 7.246 (7.35-7.45); ABG PO2 82.1 MM HG (80-95); ABG TCO2 18.7 MMOL/L (23-27)
[2020-01-08 10:46] LABS: Allen Test Positive; Pt O2 Delivery Device CPAP
[2020-01-08 13:20] LABS: Apearance,Urine CLOUDY (Clear); Bacteria,Urine Occasional /HPF (Few); Bilirubin,Urine Negative (Negative); Blood, Urine Moderate mg/dL (Negative); Glucose,Urine (UA) Negative (Negative); Ketones,Urine Negative (Negative); Mucus,Urine Moderate /LPF (Occasional); Nitrite,Urine Positive (Negative); Protein,Urine 30 MG/DL; RBC,Urine 11 /HPF (0-4); Squamous Epithelial Cell,Urine Occasional /HPF (0-10); Urine Color Yellow (Yellow); Urine Specific Gravity 1.016 (1.001-1.035); Urine Urobilinogen < 2.0 EU/DL (0.2-1.0); WBC,Urine 134 /HPF (0-6)
[2020-01-08] MEDS: MEROPENEM 500 MG in SODIUM CHLORIDE 0.9% 100 ML IV SCH (16:22)
[2020-01-08] MEDS: SIMVASTATIN 20 MG TABLET PO SCH (20:26)
[2020-01-08] MEDS: INSULIN GLARGINE 100 UNIT/ML SUBCUT SCH (20:26)
[2020-01-08] MEDS: ACETAMINOPHEN 325 MG TABLET PO PRN (20:32)
[2020-01-09] MEDS: INSULIN LISPRO 100 UNIT/ML SUBCUT SCH ×6 (00:46→23:45)
[2020-01-09] MEDS: MEROPENEM 500 MG in SODIUM CHLORIDE 0.9% 100 ML IV SCH ×4 (00:47→23:30)
[2020-01-09 05:19] LABS: ABG Base Excess -7.2 MMOL/L (-2.5-2.5); ABG HCO3 18.5 MMOL/L (20-26); ABG Oxygen Saturation 98.7 % (95-100); ABG PCO2 37.9 MM HG (35-48); ABG TCO2 17.5 MMOL/L (23-27); Allen Test Positive; Pt O2 Delivery Device Ventilator
[2020-01-09 05:39] LABS: Basophils % 0.2 % (0.0-0.8); Eosinophils # 0.1 10*3/uL (0.0-0.87); Eosinophils % 1.3 % (0.00-10.9); Hematocrit 27.4 VOL% (35.7-47.0); Hemoglobin 8.1 GM/DL (12.0-16.0); Immature Granulocytes % 1.8 %; Immature Granulocytes Absolute 0.18 #; Lymphocytes # 1.2 10*3/uL (1.4-4.0); Lymphocytes % 11.8 % (21.3-54.2); Mean Corpuscular HGB Conc 29.6 GM/DL (32-36); Mean Corpuscular Volume 93.2 FL (87-102); Monocytes % 7.7 % (1.7-12.7); Neutrophils % 77.2 % (38.7-73.9); Platelet Count 206 T/CUMM (130-400); Red Blood Count 2.94 MC/CUMM (3.8-5.5); Red Cell Distribution Width 14.9 % (9.3-17.3); White Blood Count 10.2 T/CUMM (4-12)
[2020-01-09 05:50] LABS: Calcium 9.1 MG/DL (8.5-10.1)
[2020-01-09] MEDS: DOCUSATE SODIUM 100 MG/10 ML UDCUP PO SCH ×2 (09:50→20:58)
[2020-01-09] MEDS: ZINC GLUCONATE 50 MG TABLET PO SCH (09:50)
[2020-01-09] MEDS: HYDROXYCHLOROQUINE 200 MG TABLET PO SCH ×2 (09:50→20:58)
[2020-01-09] MEDS: methylPREDNISolone SOD SUC 40 MG/1 ML VIAL IV SCH (09:51)
[2020-01-09] MEDS: ENOXAPARIN 60 MG/0.6 ML SYRINGE SUBCUT SCH (09:52)
[2020-01-09] MEDS: PANTOPRAZOLE 40 MG VIAL IV SCH (09:52)
[2020-01-09 12:31] LABS: Source URINE
[2020-01-09] MEDS: ENOXAPARIN 30 MG/0.3 ML SYRINGE SUBCUT SCH (20:58)
[2020-01-09] MEDS: SIMVASTATIN 20 MG TABLET PO SCH (20:58)
[2020-01-09] MEDS: INSULIN GLARGINE 100 UNIT/ML SUBCUT SCH (20:59)
[2020-01-09] MEDS: fentaNYL INJ 1,250 MCG in SODIUM CHLORIDE 0.9% 225 ML IV PRN (21:40)
[2020-01-10 04:33] LABS: Calcium 8.9 MG/DL (8.5-10.1); Osmolality,Calculated 293.1 MOS/KG (273-304)
[2020-01-10 04:46] LABS: Basophils % 0.1 % (0.0-0.8); Eosinophils # 0.2 10*3/uL (0.0-0.87); Eosinophils % 2.8 % (0.00-10.9); Hematocrit 26.1 VOL% (35.7-47.0); Hemoglobin 7.5 GM/DL (12.0-16.0); Immature Granulocytes % 1.6 %; Immature Granulocytes Absolute 0.12 #; Lymphocytes # 1.2 10*3/uL (1.4-4.0); Lymphocytes % 15.3 % (21.3-54.2); Mean Corpuscular HGB Conc 28.7 GM/DL (32-36); Mean Corpuscular Volume 95.3 FL (87-102); Mean Platelet Volume 10.8 FL (9.6-12.0); Monocytes % 8.4 % (1.7-12.7); Neutrophils % 71.8 % (38.7-73.9); Platelet Count 190 T/CUMM (130-400); Red Blood Count 2.74 MC/CUMM (3.8-5.5); Red Cell Distribution Width 14.9 % (9.3-17.3); White Blood Count 7.6 T/CUMM (4-12)
[2020-01-10 05:10] LABS: Hypochromasia 1+; Platelet Estimate Adequate
[2020-01-10 05:15] LABS: ABG Base Excess -6.4 MMOL/L (-2.5-2.5); ABG HCO3 19.1 MMOL/L (20-26); ABG Oxygen Saturation 95.7 % (95-100); ABG PCO2 38.4 MM HG (35-48); ABG PH 7.311 (7.35-7.45); ABG PO2 78.9 MM HG (80-95); ABG TCO2 18.3 MMOL/L (23-27); Allen Test Positive; Pt O2 Delivery Device Ventilator
[2020-01-10] MEDS: INSULIN LISPRO 100 UNIT/ML SUBCUT SCH ×3 (06:05→17:19)
[2020-01-10] MEDS: MEROPENEM 500 MG in SODIUM CHLORIDE 0.9% 100 ML IV SCH (07:57)
[2020-01-10] MEDS: ENOXAPARIN 30 MG/0.3 ML SYRINGE SUBCUT SCH ×2 (08:00→20:25)
[2020-01-10] MEDS: HYDROXYCHLOROQUINE 200 MG TABLET PO SCH ×2 (08:00→20:25)
[2020-01-10] MEDS: ZINC GLUCONATE 50 MG TABLET PO SCH (08:00)
[2020-01-10] MEDS: DOCUSATE SODIUM 100 MG/10 ML UDCUP PO SCH ×2 (08:00→20:26)
[2020-01-10] MEDS: methylPREDNISolone SOD SUC 40 MG/1 ML VIAL IV SCH (08:01)
[2020-01-10] MEDS: PANTOPRAZOLE 40 MG VIAL IV SCH (08:04)
[2020-01-10] MEDS: cefTAZidime 2,000 MG in SYRINGE 1 EACH IV SCH ×2 (11:50→23:11)
[2020-01-10] MEDS: fentaNYL INJ 1,250 MCG in SODIUM CHLORIDE 0.9% 225 ML IV PRN (12:10)
[2020-01-10] MEDS ORDERED: DEXMEDETOMIDINE 400 MCG in SODIUM CHLORIDE 0.9% 96 ML IV PRN (19:55)
[2020-01-10] MEDS: SIMVASTATIN 20 MG TABLET PO SCH (20:25)
[2020-01-10] MEDS: INSULIN GLARGINE 100 UNIT/ML SUBCUT SCH (20:26)
[2020-01-11] MEDS: INSULIN LISPRO 100 UNIT/ML SUBCUT SCH ×5 (00:45→17:12)
[2020-01-11 04:53] LABS: Basophils % 0.3 % (0.0-0.8); Eosinophils # 0.3 10*3/uL (0.0-0.87); Eosinophils % 2.9 % (0.00-10.9); Hematocrit 26.7 VOL% (35.7-47.0); Immature Granulocytes Absolute 0.18 #; Lymphocytes # 1.3 10*3/uL (1.4-4.0); Lymphocytes % 14.1 % (21.3-54.2); Mean Corpuscular Volume 91.8 FL (87-102); Mean Platelet Volume 10.2 FL (9.6-12.0); Monocytes % 6.6 % (1.7-12.7); Neutrophils % 74.1 % (38.7-73.9); Platelet Count 225 T/CUMM (130-400); Red Blood Count 2.91 MC/CUMM (3.8-5.5)
[2020-01-11 05:11] LABS: Calcium 9.2 MG/DL (8.5-10.1)
[2020-01-11 05:25] LABS: Allen Test Positive; Pt O2 Delivery Device Ventilator
[2020-01-11 05:26] LABS: ABG Base Excess -6.7 MMOL/L (-2.5-2.5); ABG HCO3 18.7 MMOL/L (20-26); ABG Oxygen Saturation 98.7 % (95-100); ABG PCO2 36.6 MM HG (35-48); ABG PH 7.326 (7.35-7.45); ABG PO2 152.1 MM HG (80-95); ABG TCO2 19.8 MMOL/L (23-27)
[2020-01-11] MEDS: DOCUSATE SODIUM 100 MG/10 ML UDCUP PO SCH ×2 (08:48→20:38)
[2020-01-11] MEDS: HYDROXYCHLOROQUINE 200 MG TABLET PO SCH ×2 (08:48→20:38)
[2020-01-11] MEDS: ZINC GLUCONATE 50 MG TABLET PO SCH (08:48)
[2020-01-11] MEDS: ENOXAPARIN 30 MG/0.3 ML SYRINGE SUBCUT SCH ×2 (08:49→20:38)
[2020-01-11] MEDS: PANTOPRAZOLE 40 MG VIAL IV SCH (08:52)
[2020-01-11] MEDS: fentaNYL INJ 1,250 MCG in SODIUM CHLORIDE 0.9% 225 ML IV PRN (08:56)
[2020-01-11] MEDS: methylPREDNISolone SOD SUC 40 MG/1 ML VIAL IV SCH (09:05)
[2020-01-11] MEDS: cefTAZidime 2,000 MG in SYRINGE 1 EACH IV SCH ×2 (09:28→21:46)
[2020-01-11] MEDS: INSULIN GLARGINE 100 UNIT/ML SUBCUT SCH (20:38)
[2020-01-11] MEDS: SIMVASTATIN 20 MG TABLET PO SCH (20:38)
[2020-01-12] MEDS: INSULIN LISPRO 100 UNIT/ML SUBCUT SCH ×4 (01:36→17:02)
[2020-01-12 04:02] LABS: ABG Base Excess -5.4 MMOL/L (-2.5-2.5); ABG HCO3 19.4 MMOL/L (20-26); ABG Oxygen Saturation 98.5 % (95-100); ABG PCO2 34.8 MM HG (35-48); ABG PH 7.363 (7.35-7.45); ABG PO2 145.2 MM HG (80-95); ABG TCO2 20.4 MMOL/L (23-27); Allen Test Positive; Pt O2 Delivery Device Ventilator
[2020-01-12 06:02] LABS: Basophils % 0.3 % (0.0-0.8); Eosinophils # 0.3 10*3/uL (0.0-0.87); Eosinophils % 3.2 % (0.00-10.9); Hemoglobin 8.3 GM/DL (12.0-16.0); Immature Granulocytes % 1.8 %; Immature Granulocytes Absolute 0.16 #; Lymphocytes # 1.3 10*3/uL (1.4-4.0); Lymphocytes % 14.5 % (21.3-54.2); Mean Corpuscular HGB Conc 29.6 GM/DL (32-36); Mean Corpuscular Volume 93.3 FL (87-102); Mean Platelet Volume 10.2 FL (9.6-12.0); Monocytes % 7.5 % (1.7-12.7); Neutrophils % 72.7 % (38.7-73.9); Platelet Count 227 T/CUMM (130-400); Red Cell Distribution Width 14.8 % (9.3-17.3)
[2020-01-12 06:16] LABS: Calcium 9.7 MG/DL (8.5-10.1); Osmolality,Calculated 292.8 MOS/KG (273-304)
[2020-01-12] MEDS: PANTOPRAZOLE 40 MG VIAL IV SCH (09:16)
[2020-01-12] MEDS: DOCUSATE SODIUM 100 MG/10 ML UDCUP PO SCH ×2 (09:17→20:29)
[2020-01-12] MEDS: ENOXAPARIN 30 MG/0.3 ML SYRINGE SUBCUT SCH ×2 (09:17→20:29)
[2020-01-12] MEDS: ZINC GLUCONATE 50 MG TABLET PO SCH (09:17)
[2020-01-12] MEDS: HYDROXYCHLOROQUINE 200 MG TABLET PO SCH ×2 (09:17→20:29)
[2020-01-12] MEDS: methylPREDNISolone SOD SUC 40 MG/1 ML VIAL IV SCH (09:17)
[2020-01-12] MEDS: ACETAMINOPHEN 325 MG TABLET PO PRN (11:55)
[2020-01-12] MEDS: cefTAZidime 2,000 MG in SYRINGE 1 EACH IV SCH (14:13)
[2020-01-12] MEDS ORDERED: NIFEdipine 10 MG CAPSULE PO PRN (15:14)
[2020-01-12] MEDS: fentaNYL 25 MCG/HR PATCH TRANSDERM SCH (16:06)
[2020-01-12] MEDS: amLODIPine 5 MG TABLET PO SCH (16:07)
[2020-01-12] MEDS: hydrALAZINE 20 MG/1 ML VIAL IV PRN (16:40)
[2020-01-12] MEDS: MORPHINE 4 MG/1 ML VIAL IV PRN ×2 (17:54→21:30)
[2020-01-12] MEDS: INSULIN GLARGINE 100 UNIT/ML SUBCUT SCH (20:29)
[2020-01-12] MEDS: SIMVASTATIN 20 MG TABLET PO SCH (20:29)
[2020-01-13] MEDS: INSULIN LISPRO 100 UNIT/ML SUBCUT SCH ×4 (01:25→17:23)
[2020-01-13] MEDS: cefTAZidime 2,000 MG in SYRINGE 1 EACH IV SCH ×2 (02:50→14:49)
[2020-01-13 04:47] LABS: Allen Test Positive; Pt O2 Delivery Device Other
[2020-01-13 04:51] LABS: ABG Base Excess -4.2 MMOL/L (-2.5-2.5); ABG HCO3 19.8 MMOL/L (20-26); ABG Oxygen Saturation 98.4 % (95-100); ABG PCO2 32.6 MM HG (35-48); ABG PH 7.402 (7.35-7.45); ABG PO2 132.7 MM HG (80-95); ABG TCO2 20.8 MMOL/L (23-27)
[2020-01-13 04:58] LABS: Basophils # 0.1 10*3/uL (0.0-0.2); Basophils % 0.5 % (0.0-0.8); Eosinophils # 0.3 10*3/uL (0.0-0.87); Eosinophils % 2.8 % (0.00-10.9); Hematocrit 30.7 VOL% (35.7-47.0); Hemoglobin 9.1 GM/DL (12.0-16.0); Immature Granulocytes % 1.3 %; Immature Granulocytes Absolute 0.12 #; Lymphocytes # 1.1 10*3/uL (1.4-4.0); Lymphocytes % 11.7 % (21.3-54.2); Mean Corpuscular HGB Conc 29.6 GM/DL (32-36); Mean Corpuscular Volume 91.9 FL (87-102); Mean Platelet Volume 9.9 FL (9.6-12.0); Monocytes % 7.2 % (1.7-12.7); Neutrophils % 76.5 % (38.7-73.9); Platelet Count 243 T/CUMM (130-400); Red Blood Count 3.34 MC/CUMM (3.8-5.5); Red Cell Distribution Width 15.2 % (9.3-17.3); White Blood Count 9.2 T/CUMM (4-12)
[2020-01-13] MEDS: methylPREDNISolone SOD SUC 40 MG/1 ML VIAL IV SCH (08:58)
[2020-01-13] MEDS: ENOXAPARIN 30 MG/0.3 ML SYRINGE SUBCUT SCH ×2 (08:58→20:45)
[2020-01-13] MEDS: amLODIPine 5 MG TABLET PO SCH (08:58)
[2020-01-13] MEDS: DOCUSATE SODIUM 100 MG/10 ML UDCUP PO SCH ×2 (08:58→20:45)
[2020-01-13] MEDS: PANTOPRAZOLE 40 MG VIAL IV SCH (08:58)
[2020-01-13] MEDS: ACETAMINOPHEN 325 MG TABLET PO PRN ×2 (08:58→16:20)
[2020-01-13] MEDS: ZINC GLUCONATE 50 MG TABLET PO SCH (08:58)
[2020-01-13] MEDS: HYDROXYCHLOROQUINE 200 MG TABLET PO SCH ×2 (08:58→20:45)
[2020-01-13] MEDS ORDERED: MAGNESIUM SULF RIDER 2 GM in PREMIX 1 EACH IV ONE (09:34)
[2020-01-13] MEDS: METOPROLOL TARTRATE 25 MG TABLET PO SCH ×2 (11:50→20:45)
[2020-01-13] MEDS: hydrALAZINE 20 MG/1 ML VIAL IV PRN (13:00)
[2020-01-13] MEDS: INSULIN GLARGINE 100 UNIT/ML SUBCUT SCH (20:25)
[2020-01-13] MEDS: SIMVASTATIN 20 MG TABLET PO SCH (20:45)
[2020-01-14] MEDS: INSULIN LISPRO 100 UNIT/ML SUBCUT SCH ×4 (01:18→17:45)
[2020-01-14] MEDS: cefTAZidime 2,000 MG in SYRINGE 1 EACH IV SCH ×2 (02:45→16:45)
[2020-01-14 04:49] LABS: Allen Test Positive
[2020-01-14 04:51] LABS: ABG Base Excess -2.5 MMOL/L (-2.5-2.5); ABG HCO3 21.2 MMOL/L (20-26); ABG Oxygen Saturation 96.5 % (95-100); ABG PCO2 33.9 MM HG (35-48); ABG PH 7.415 (7.35-7.45); ABG PO2 83.7 MM HG (80-95); ABG TCO2 22.3 MMOL/L (23-27)
[2020-01-14 05:53] LABS: Basophils % 0.4 % (0.0-0.8); Eosinophils # 0.4 10*3/uL (0.0-0.87); Eosinophils % 3.9 % (0.00-10.9); Hematocrit 30.4 VOL% (35.7-47.0); Hemoglobin 9.2 GM/DL (12.0-16.0); Immature Granulocytes % 1.2 %; Immature Granulocytes Absolute 0.11 #; Lymphocytes % 10.6 % (21.3-54.2); Mean Corpuscular HGB Conc 30.3 GM/DL (32-36); Mean Corpuscular Volume 90.5 FL (87-102); Mean Platelet Volume 10.5 FL (9.6-12.0); Monocytes % 6.6 % (1.7-12.7); Neutrophils % 77.3 % (38.7-73.9); Platelet Count 223 T/CUMM (130-400); Red Blood Count 3.36 MC/CUMM (3.8-5.5); Red Cell Distribution Width 15.7 % (9.3-17.3); White Blood Count 9.4 T/CUMM (4-12)
[2020-01-14 06:22] LABS: Calcium 9.5 MG/DL (8.5-10.1)
[2020-01-14] MEDS: DOCUSATE SODIUM 100 MG/10 ML UDCUP PO SCH ×2 (08:45→21:38)
[2020-01-14] MEDS: ENOXAPARIN 30 MG/0.3 ML SYRINGE SUBCUT SCH ×2 (08:45→21:38)
[2020-01-14] MEDS: PANTOPRAZOLE 40 MG VIAL IV SCH (08:46)
[2020-01-14] MEDS: HYDROXYCHLOROQUINE 200 MG TABLET PO SCH ×2 (08:46→21:38)
[2020-01-14] MEDS: methylPREDNISolone SOD SUC 40 MG/1 ML VIAL IV SCH (08:46)
[2020-01-14] MEDS: METOPROLOL TARTRATE 25 MG TABLET PO SCH ×2 (08:47→21:38)
[2020-01-14] MEDS: amLODIPine 5 MG TABLET PO SCH (08:47)
[2020-01-14] MEDS: ZINC GLUCONATE 50 MG TABLET PO SCH (08:47)
[2020-01-14] MEDS: INSULIN GLARGINE 100 UNIT/ML SUBCUT SCH (21:38)
[2020-01-14] MEDS: SIMVASTATIN 20 MG TABLET PO SCH (21:38)
[2020-01-15] MEDS: INSULIN LISPRO 100 UNIT/ML SUBCUT SCH ×4 (01:21→17:44)
[2020-01-15] MEDS: MORPHINE 4 MG/1 ML VIAL IV PRN ×2 (01:45→17:45)
[2020-01-15] MEDS: cefTAZidime 2,000 MG in SYRINGE 1 EACH IV SCH (02:53)
[2020-01-15] MEDS: METOPROLOL TARTRATE 25 MG TABLET PO SCH (08:30)
[2020-01-15] MEDS: amLODIPine 5 MG TABLET PO SCH (08:30)
[2020-01-15] MEDS: ENOXAPARIN 30 MG/0.3 ML SYRINGE SUBCUT SCH ×2 (08:30→21:00)
[2020-01-15] MEDS: fentaNYL 25 MCG/HR PATCH TRANSDERM SCH (08:30)
[2020-01-15] MEDS: HYDROXYCHLOROQUINE 200 MG TABLET PO SCH (08:30)
[2020-01-15] MEDS: ZINC GLUCONATE 50 MG TABLET PO SCH (08:30)
[2020-01-15] MEDS: DOCUSATE SODIUM 100 MG/10 ML UDCUP PO SCH ×2 (08:30→21:00)
[2020-01-15] MEDS: PANTOPRAZOLE 40 MG VIAL IV SCH (08:30)
[2020-01-15] MEDS: methylPREDNISolone SOD SUC 40 MG/1 ML VIAL IV SCH (08:32)
[2020-01-15 11:32] LABS: ABG Base Excess 0.7 MMOL/L (-2.5-2.5); ABG Oxygen Saturation 94.5 % (95-100); ABG PCO2 42.2 MM HG (35-48); ABG PH 7.393 (7.35-7.45); ABG PO2 72.4 MM HG (80-95); ABG TCO2 23.6 MMOL/L (23-27)
[2020-01-15] MEDS ORDERED: METOPROLOL TARTRATE 25 MG TABLET PO ONE (12:00)
[2020-01-15] MEDS ORDERED: amLODIPine 5 MG TABLET PO ONE (12:00)
[2020-01-15] MEDS: hydrALAZINE 20 MG/1 ML VIAL IV PRN (18:18)
[2020-01-15] MEDS: METOPROLOL TARTRATE 50 MG TABLET PO SCH (21:00)
[2020-01-15] MEDS: INSULIN GLARGINE 100 UNIT/ML SUBCUT SCH (21:00)
[2020-01-15] MEDS: SIMVASTATIN 20 MG TABLET PO SCH (21:00)
[2020-01-16] MEDS: INSULIN LISPRO 100 UNIT/ML SUBCUT SCH ×4 (01:00→18:15)
[2020-01-16] MEDS: ACETAMINOPHEN 325 MG TABLET PO PRN ×2 (04:50→20:10)
[2020-01-16 05:34] LABS: Basophils % 0.4 % (0.0-0.8); Eosinophils # 0.4 10*3/uL (0.0-0.87); Eosinophils % 4.7 % (0.00-10.9); Hematocrit 29.9 VOL% (35.7-47.0); Hemoglobin 8.9 GM/DL (12.0-16.0); Immature Granulocytes % 2.1 %; Immature Granulocytes Absolute 0.19 #; Lymphocytes # 1.5 10*3/uL (1.4-4.0); Lymphocytes % 16.4 % (21.3-54.2); Mean Corpuscular HGB Conc 29.8 GM/DL (32-36); Mean Corpuscular Volume 91.7 FL (87-102); Mean Platelet Volume 10.4 FL (9.6-12.0); Neutrophils % 69.4 % (38.7-73.9); Platelet Count 234 T/CUMM (130-400); Red Blood Count 3.26 MC/CUMM (3.8-5.5); Red Cell Distribution Width 15.8 % (9.3-17.3); White Blood Count 9.2 T/CUMM (4-12)
[2020-01-16 06:13] LABS: Albumin 2.1 G/DL (3.4-5.0); Bilirubin,Total 0.4 MG/DL (0.2-1.0); Calcium 9.4 MG/DL (8.5-10.1); Osmolality,Calculated 292.4 MOS/KG (273-304); Total Protein 7.5 G/DL (6.4-8.3)
[2020-01-16 06:27] LABS: ABG Base Excess 2.4 MMOL/L (-2.5-2.5); ABG HCO3 26.5 MMOL/L (20-26); ABG Oxygen Saturation 97.1 % (95-100); ABG PH 7.433 (7.35-7.45); ABG PO2 83.5 MM HG (80-95); ABG TCO2 24.7 MMOL/L (23-27)
[2020-01-16 06:28] LABS: Allen Test Positive
[2020-01-16] MEDS: amLODIPine 10 MG TABLET PO SCH (08:11)
[2020-01-16] MEDS: ENOXAPARIN 30 MG/0.3 ML SYRINGE SUBCUT SCH ×2 (08:11→20:10)
[2020-01-16] MEDS: methylPREDNISolone SOD SUC 40 MG/1 ML VIAL IV SCH (08:11)
[2020-01-16] MEDS: METOPROLOL TARTRATE 50 MG TABLET PO SCH ×2 (08:11→20:10)
[2020-01-16] MEDS: PANTOPRAZOLE 40 MG VIAL IV SCH (08:11)
[2020-01-16] MEDS: DOCUSATE SODIUM 100 MG/10 ML UDCUP PO SCH ×2 (08:11→20:10)
[2020-01-16] MEDS: SIMVASTATIN 20 MG TABLET PO SCH (20:10)
[2020-01-16] MEDS: INSULIN GLARGINE 100 UNIT/ML SUBCUT SCH (20:10)
[2020-01-17] MEDS: INSULIN LISPRO 100 UNIT/ML SUBCUT SCH ×5 (00:06→23:30)
[2020-01-17] MEDS: ACETAMINOPHEN 325 MG TABLET PO PRN (03:39)
[2020-01-17] MEDS: METOPROLOL TARTRATE 50 MG TABLET PO SCH ×2 (09:18→21:00)
[2020-01-17] MEDS: DOCUSATE SODIUM 100 MG/10 ML UDCUP PO SCH ×2 (09:18→21:00)
[2020-01-17] MEDS: amLODIPine 10 MG TABLET PO SCH (09:19)
[2020-01-17] MEDS: ENOXAPARIN 30 MG/0.3 ML SYRINGE SUBCUT SCH ×2 (09:19→21:00)
[2020-01-17] MEDS: methylPREDNISolone SOD SUC 40 MG/1 ML VIAL IV SCH (09:19)
[2020-01-17] MEDS: PANTOPRAZOLE 40 MG VIAL IV SCH (09:19)
[2020-01-17] MEDS ORDERED: DEXTROSE 10% 250 ML BAG IV PRN (13:00)
[2020-01-17] MEDS: SIMVASTATIN 20 MG TABLET PO SCH (21:00)
[2020-01-17] MEDS: INSULIN GLARGINE 100 UNIT/ML SUBCUT SCH (21:00)
[2020-01-18] MEDS: INSULIN LISPRO 100 UNIT/ML SUBCUT SCH ×3 (05:27→17:45)
[2020-01-18 05:34] LABS: Basophils # 0.1 10*3/uL (0.0-0.2); Basophils % 0.5 % (0.0-0.8); Eosinophils # 0.3 10*3/uL (0.0-0.87); Hematocrit 30.8 VOL% (35.7-47.0); Hemoglobin 9.2 GM/DL (12.0-16.0); Immature Granulocytes % 2.2 %; Immature Granulocytes Absolute 0.22 #; Lymphocytes # 2.4 10*3/uL (1.4-4.0); Lymphocytes % 23.3 % (21.3-54.2); Mean Corpuscular HGB Conc 29.9 GM/DL (32-36); Mean Corpuscular Volume 93.3 FL (87-102); Mean Platelet Volume 10.8 FL (9.6-12.0); Monocytes % 7.2 % (1.7-12.7); Neutrophils % 63.8 % (38.7-73.9); Platelet Count 279 T/CUMM (130-400); Red Cell Distribution Width 15.9 % (9.3-17.3); White Blood Count 10.2 T/CUMM (4-12)
[2020-01-18 06:09] LABS: Calcium 9.1 MG/DL (8.5-10.1); Osmolality,Calculated 289.4 MOS/KG (273-304)
[2020-01-18] MEDS: METOPROLOL TARTRATE 50 MG TABLET PO SCH ×2 (09:16→20:30)
[2020-01-18] MEDS: DOCUSATE SODIUM 100 MG/10 ML UDCUP PO SCH ×2 (09:16→20:30)
[2020-01-18] MEDS: ENOXAPARIN 30 MG/0.3 ML SYRINGE SUBCUT SCH ×2 (09:16→20:30)
[2020-01-18] MEDS: PANTOPRAZOLE 40 MG TABLET PO SCH (09:17)
[2020-01-18] MEDS: methylPREDNISolone SOD SUC 40 MG/1 ML VIAL IV SCH (09:17)
[2020-01-18] MEDS: amLODIPine 10 MG TABLET PO SCH (09:17)
[2020-01-18] MEDS: INSULIN GLARGINE 100 UNIT/ML SUBCUT SCH (20:22)
[2020-01-18] MEDS: SIMVASTATIN 20 MG TABLET PO SCH (20:30)
[2020-01-19] MEDS: INSULIN LISPRO 100 UNIT/ML SUBCUT SCH ×4 (02:03→18:51)
[2020-01-19 07:06] LABS: Basophils # 0.1 10*3/uL (0.0-0.2); Basophils % 0.5 % (0.0-0.8); Eosinophils # 0.4 10*3/uL (0.0-0.87); Eosinophils % 3.8 % (0.00-10.9); Hematocrit 32.1 VOL% (35.7-47.0); Hemoglobin 9.7 GM/DL (12.0-16.0); Immature Granulocytes Absolute 0.28 #; Lymphocytes # 2.4 10*3/uL (1.4-4.0); Lymphocytes % 24.9 % (21.3-54.2); Mean Corpuscular HGB Conc 30.2 GM/DL (32-36); Mean Platelet Volume 11.5 FL (9.6-12.0); Monocytes % 7.7 % (1.7-12.7); Neutrophils % 60.1 % (38.7-73.9); Platelet Count 258 T/CUMM (130-400); Red Blood Count 3.49 MC/CUMM (3.8-5.5); Red Cell Distribution Width 16.2 % (9.3-17.3); White Blood Count 9.4 T/CUMM (4-12)
[2020-01-19 07:25] LABS: Calcium 9.6 MG/DL (8.5-10.1); Ferritin 343.8 ng/ml (8-252)
[2020-01-19] MEDS: METOPROLOL TARTRATE 50 MG TABLET PO SCH ×2 (09:57→21:23)
[2020-01-19] MEDS: amLODIPine 10 MG TABLET PO SCH (09:57)
[2020-01-19] MEDS: predniSONE 20 MG TABLET PO SCH (09:57)
[2020-01-19] MEDS: DOCUSATE SODIUM 100 MG/10 ML UDCUP PO SCH ×2 (09:57→21:22)
[2020-01-19] MEDS: ENOXAPARIN 30 MG/0.3 ML SYRINGE SUBCUT SCH ×2 (09:57→21:23)
[2020-01-19] MEDS: PANTOPRAZOLE 40 MG TABLET PO SCH (09:57)
[2020-01-19] MEDS: INSULIN GLARGINE 100 UNIT/ML SUBCUT SCH (21:23)
[2020-01-19] MEDS: SIMVASTATIN 20 MG TABLET PO SCH (21:23)
[2020-01-19] MEDS ORDERED: BISACODYL 10 MG SUPP RECTAL ONE (23:49)
[2020-01-20] MEDS: INSULIN LISPRO 100 UNIT/ML SUBCUT SCH ×4 (00:27→18:30)
[2020-01-20 06:03] LABS: Basophils # 0.1 10*3/uL (0.0-0.2); Basophils % 0.5 % (0.0-0.8); Eosinophils # 0.3 10*3/uL (0.0-0.87); Eosinophils % 3.4 % (0.00-10.9); Hematocrit 31.3 VOL% (35.7-47.0); Hemoglobin 9.7 GM/DL (12.0-16.0); Immature Granulocytes % 2.8 %; Immature Granulocytes Absolute 0.26 #; Lymphocytes # 2.1 10*3/uL (1.4-4.0); Lymphocytes % 22.7 % (21.3-54.2); Mean Platelet Volume 11.2 FL (9.6-12.0); Monocytes % 8.2 % (1.7-12.7); Neutrophils % 62.4 % (38.7-73.9); Platelet Count 290 T/CUMM (130-400); Red Blood Count 3.44 MC/CUMM (3.8-5.5); White Blood Count 9.4 T/CUMM (4-12)
[2020-01-20 08:26] LABS: Calcium 9.2 MG/DL (8.5-10.1); Osmolality,Calculated 285.5 MOS/KG (273-304)
[2020-01-20 08:43] LABS: Ferritin 275.9 ng/ml (8-252)
[2020-01-20] MEDS ORDERED: ENOXAPARIN 40 MG/0.4 ML SYRINGE SUBCUT SCH (09:00)
[2020-01-20] MEDS: PANTOPRAZOLE 40 MG TABLET PO SCH (09:17)
[2020-01-20] MEDS: predniSONE 20 MG TABLET PO SCH (09:17)
[2020-01-20] MEDS: amLODIPine 10 MG TABLET PO SCH (09:18)
[2020-01-20] MEDS: METOPROLOL TARTRATE 50 MG TABLET PO SCH ×2 (09:18→20:33)
[2020-01-20] MEDS: ENOXAPARIN 30 MG/0.3 ML SYRINGE SUBCUT SCH ×2 (09:18→20:33)
[2020-01-20] MEDS: DOCUSATE SODIUM 100 MG/10 ML UDCUP PO SCH ×2 (09:18→20:33)
[2020-01-20] MEDS: POLYETHYLENE GLYCOL POWDER 17 GM PACK PO SCH (09:18)
[2020-01-20] MEDS ORDERED: MINERAL OIL ENEMA 133 ML BOTTLE RECTAL ONE (12:00)
[2020-01-20] MEDS: LIDOCAINE 2% VISCOUS 100 ML BOTTLE SWISH/SWAL SCH ×2 (12:00→16:15)
[2020-01-20] MEDS: SIMVASTATIN 20 MG TABLET PO SCH (20:33)
[2020-01-20] MEDS: INSULIN GLARGINE 100 UNIT/ML SUBCUT SCH (20:40)
[2020-01-21] MEDS: INSULIN LISPRO 100 UNIT/ML SUBCUT SCH ×4 (00:07→17:03)
[2020-01-21 06:14] LABS: Basophils # 0.1 10*3/uL (0.0-0.2); Basophils % 0.6 % (0.0-0.8); Eosinophils # 0.2 10*3/uL (0.0-0.87); Eosinophils % 2.2 % (0.00-10.9); Hematocrit 31.2 VOL% (35.7-47.0); Hemoglobin 9.2 GM/DL (12.0-16.0); Immature Granulocytes % 4.7 %; Immature Granulocytes Absolute 0.39 #; Lymphocytes # 1.9 10*3/uL (1.4-4.0); Lymphocytes % 23.2 % (21.3-54.2); Mean Corpuscular HGB Conc 29.5 GM/DL (32-36); Mean Corpuscular Volume 93.4 FL (87-102); Mean Platelet Volume 10.7 FL (9.6-12.0); Monocytes % 9.1 % (1.7-12.7); Neutrophils % 60.2 % (38.7-73.9); Platelet Count 313 T/CUMM (130-400); Red Blood Count 3.34 MC/CUMM (3.8-5.5); White Blood Count 8.4 T/CUMM (4-12)
[2020-01-21 06:36] LABS: Calcium 9.3 MG/DL (8.5-10.1); Osmolality,Calculated 285.4 MOS/KG (273-304)
[2020-01-21] MEDS: POLYETHYLENE GLYCOL POWDER 17 GM PACK PO SCH (09:12)
[2020-01-21] MEDS: LIDOCAINE 2% VISCOUS 100 ML BOTTLE SWISH/SWAL SCH ×3 (09:12→17:02)
[2020-01-21] MEDS: ENOXAPARIN 30 MG/0.3 ML SYRINGE SUBCUT SCH ×2 (09:12→21:39)
[2020-01-21] MEDS: DOCUSATE SODIUM 100 MG/10 ML UDCUP PO SCH ×2 (09:12→21:39)
[2020-01-21] MEDS: PANTOPRAZOLE 40 MG TABLET PO SCH (09:13)
[2020-01-21] MEDS: predniSONE 20 MG TABLET PO SCH (09:13)
[2020-01-21] MEDS: amLODIPine 10 MG TABLET PO SCH (09:13)
[2020-01-21] MEDS: METOPROLOL TARTRATE 50 MG TABLET PO SCH ×2 (09:13→21:39)
[2020-01-21] MEDS: SIMVASTATIN 20 MG TABLET PO SCH (21:39)
[2020-01-21] MEDS: INSULIN GLARGINE 100 UNIT/ML SUBCUT SCH (21:40)
[2020-01-22] MEDS: INSULIN LISPRO 100 UNIT/ML SUBCUT SCH ×5 (02:05→23:01)
[2020-01-22 06:11] LABS: Basophils # 0.1 10*3/uL (0.0-0.2); Basophils % 0.6 % (0.0-0.8); Eosinophils # 0.2 10*3/uL (0.0-0.87); Eosinophils % 1.9 % (0.00-10.9); Hematocrit 31.4 VOL% (35.7-47.0); Hemoglobin 9.4 GM/DL (12.0-16.0); Immature Granulocytes % 4.1 %; Immature Granulocytes Absolute 0.37 #; Lymphocytes # 2.1 10*3/uL (1.4-4.0); Lymphocytes % 23.3 % (21.3-54.2); Mean Corpuscular HGB Conc 29.9 GM/DL (32-36); Mean Corpuscular Volume 92.1 FL (87-102); Mean Platelet Volume 10.6 FL (9.6-12.0); Monocytes % 9.3 % (1.7-12.7); Neutrophils % 60.8 % (38.7-73.9); Platelet Count 330 T/CUMM (130-400); Red Blood Count 3.41 MC/CUMM (3.8-5.5); Red Cell Distribution Width 15.9 % (9.3-17.3)
[2020-01-22 06:27] LABS: Ferritin 284.9 ng/ml (8-252); Osmolality,Calculated 277.1 MOS/KG (273-304)
[2020-01-22] MEDS: PANTOPRAZOLE 40 MG TABLET PO SCH (08:15)
[2020-01-22] MEDS: ENOXAPARIN 30 MG/0.3 ML SYRINGE SUBCUT SCH ×2 (08:15→20:53)
[2020-01-22] MEDS: POLYETHYLENE GLYCOL POWDER 17 GM PACK PO SCH (08:15)
[2020-01-22] MEDS: amLODIPine 10 MG TABLET PO SCH (08:15)
[2020-01-22] MEDS: LIDOCAINE 2% VISCOUS 100 ML BOTTLE SWISH/SWAL SCH ×3 (08:15→16:41)
[2020-01-22] MEDS: DOCUSATE SODIUM 100 MG/10 ML UDCUP PO SCH ×2 (08:15→20:53)
[2020-01-22] MEDS: predniSONE 20 MG TABLET PO SCH (08:15)
[2020-01-22] MEDS: METOPROLOL TARTRATE 50 MG TABLET PO SCH ×2 (08:15→20:53)
[2020-01-22] MEDS ORDERED: LACTULOSE 20 GM/30 ML UDCUP PO PRN (09:53)
[2020-01-22] MEDS ORDERED: LACTULOSE 20 GM/30 ML UDCUP PO ONE (09:53)
[2020-01-22] MEDS: SIMVASTATIN 20 MG TABLET PO SCH (20:54)
[2020-01-22] MEDS: INSULIN GLARGINE 100 UNIT/ML SUBCUT SCH (20:55)
[2020-01-23 05:46] LABS: Basophils # 0.1 10*3/uL (0.0-0.2); Basophils % 0.6 % (0.0-0.8); Eosinophils # 0.2 10*3/uL (0.0-0.87); Eosinophils % 2.2 % (0.00-10.9); Hematocrit 31.1 VOL% (35.7-47.0); Hemoglobin 9.4 GM/DL (12.0-16.0); Immature Granulocytes % 4.9 %; Immature Granulocytes Absolute 0.41 #; Lymphocytes # 1.9 10*3/uL (1.4-4.0); Lymphocytes % 22.7 % (21.3-54.2); Mean Corpuscular HGB Conc 30.2 GM/DL (32-36); Mean Corpuscular Volume 91.2 FL (87-102); Mean Platelet Volume 10.4 FL (9.6-12.0); Monocytes % 9.2 % (1.7-12.7); Neutrophils % 60.4 % (38.7-73.9); Platelet Count 327 T/CUMM (130-400); Red Blood Count 3.41 MC/CUMM (3.8-5.5); White Blood Count 8.4 T/CUMM (4-12)
[2020-01-23 06:19] LABS: Calcium 8.7 MG/DL (8.5-10.1); Ferritin 272.3 ng/ml (8-252); Osmolality,Calculated 272.2 MOS/KG (273-304)
[2020-01-23] MEDS: INSULIN LISPRO 100 UNIT/ML SUBCUT SCH ×4 (06:36→23:27)
[2020-01-23] MEDS: LIDOCAINE 2% VISCOUS 100 ML BOTTLE SWISH/SWAL SCH ×3 (08:20→16:05)
[2020-01-23] MEDS: DOCUSATE SODIUM 100 MG/10 ML UDCUP PO SCH ×2 (08:22→21:27)
[2020-01-23] MEDS: POLYETHYLENE GLYCOL POWDER 17 GM PACK PO SCH (08:22)
[2020-01-23] MEDS: ENOXAPARIN 30 MG/0.3 ML SYRINGE SUBCUT SCH ×2 (08:23→21:28)
[2020-01-23] MEDS: PANTOPRAZOLE 40 MG TABLET PO SCH (08:24)
[2020-01-23] MEDS: amLODIPine 10 MG TABLET PO SCH (08:24)
[2020-01-23] MEDS: predniSONE 20 MG TABLET PO SCH (08:24)
[2020-01-23] MEDS: METOPROLOL TARTRATE 50 MG TABLET PO SCH ×2 (08:24→21:28)
[2020-01-23] MEDS ORDERED: BISACODYL 10 MG SUPP RECTAL PRN (16:37)
[2020-01-23] MEDS: ACETAMINOPHEN 325 MG TABLET PO PRN (21:28)
[2020-01-23] MEDS: INSULIN GLARGINE 100 UNIT/ML SUBCUT SCH (21:28)
[2020-01-23] MEDS: SIMVASTATIN 20 MG TABLET PO SCH (21:28)
[2020-01-24 05:43] LABS: Basophils # 0.1 10*3/uL (0.0-0.2); Basophils % 0.6 % (0.0-0.8); Eosinophils # 0.1 10*3/uL (0.0-0.87); Eosinophils % 1.7 % (0.00-10.9); Hematocrit 32.9 VOL% (35.7-47.0); Hemoglobin 9.8 GM/DL (12.0-16.0); Immature Granulocytes % 4.7 %; Immature Granulocytes Absolute 0.38 #; Lymphocytes % 24.6 % (21.3-54.2); Mean Corpuscular HGB Conc 29.8 GM/DL (32-36); Mean Corpuscular Volume 91.9 FL (87-102); Mean Platelet Volume 10.6 FL (9.6-12.0); Monocytes % 9.9 % (1.7-12.7); Neutrophils % 58.5 % (38.7-73.9); Platelet Count 350 T/CUMM (130-400); Red Blood Count 3.58 MC/CUMM (3.8-5.5); Red Cell Distribution Width 15.9 % (9.3-17.3); White Blood Count 8.1 T/CUMM (4-12)
[2020-01-24] MEDS: INSULIN LISPRO 100 UNIT/ML SUBCUT SCH ×5 (06:26→20:46)
[2020-01-24 07:26] LABS: Calcium 8.8 MG/DL (8.5-10.1); Ferritin 238.6 ng/ml (8-252); Osmolality,Calculated 272.2 MOS/KG (273-304)
[2020-01-24] MEDS: ENOXAPARIN 30 MG/0.3 ML SYRINGE SUBCUT SCH ×2 (08:25→20:29)
[2020-01-24] MEDS: amLODIPine 10 MG TABLET PO SCH (08:25)
[2020-01-24] MEDS: DOCUSATE SODIUM 100 MG/10 ML UDCUP PO SCH ×3 (08:25→20:48)
[2020-01-24] MEDS: METOPROLOL TARTRATE 50 MG TABLET PO SCH ×2 (08:25→20:30)
[2020-01-24] MEDS: PANTOPRAZOLE 40 MG TABLET PO SCH (08:25)
[2020-01-24] MEDS: POLYETHYLENE GLYCOL POWDER 17 GM PACK PO SCH (08:25)
[2020-01-24] MEDS: LIDOCAINE 2% VISCOUS 100 ML BOTTLE SWISH/SWAL SCH ×3 (09:15→16:56)
[2020-01-24] MEDS: SIMVASTATIN 20 MG TABLET PO SCH (20:29)
[2020-01-24] MEDS: INSULIN GLARGINE 100 UNIT/ML SUBCUT SCH (21:37)
[2020-01-25 05:35] LABS: Basophils # 0.1 10*3/uL (0.0-0.2); Basophils % 0.8 % (0.0-0.8); Eosinophils # 0.2 10*3/uL (0.0-0.87); Eosinophils % 3.5 % (0.00-10.9); Hemoglobin 10.1 GM/DL (12.0-16.0); Immature Granulocytes % 5.2 %; Immature Granulocytes Absolute 0.33 #; Lymphocytes # 1.5 10*3/uL (1.4-4.0); Lymphocytes % 24.2 % (21.3-54.2); Mean Corpuscular HGB Conc 29.7 GM/DL (32-36); Mean Corpuscular Volume 93.4 FL (87-102); Mean Platelet Volume 10.4 FL (9.6-12.0); Monocytes % 11.6 % (1.7-12.7); Neutrophils % 54.7 % (38.7-73.9); Platelet Count 289 T/CUMM (130-400); Red Blood Count 3.64 MC/CUMM (3.8-5.5); Red Cell Distribution Width 16.1 % (9.3-17.3); White Blood Count 6.3 T/CUMM (4-12)
[2020-01-25 06:03] LABS: Hypochromasia 1+; Lymphocytes 29 % (20-55); Nucleated Red Blood Cells 1 (0-5); Platelet Estimate Adequate; Segmented Neutrophils 56 % (50-85); Total Cells Counted 100
[2020-01-25 06:13] LABS: Calcium 8.7 MG/DL (8.5-10.1); Osmolality,Calculated 281.7 MOS/KG (273-304)
[2020-01-25] MEDS: amLODIPine 10 MG TABLET PO SCH (08:30)
[2020-01-25] MEDS: DOCUSATE SODIUM 100 MG/10 ML UDCUP PO SCH (08:30)
[2020-01-25] MEDS: METOPROLOL TARTRATE 50 MG TABLET PO SCH (08:30)
[2020-01-25] MEDS: PANTOPRAZOLE 40 MG TABLET PO SCH (08:30)
[2020-01-25] MEDS: ENOXAPARIN 30 MG/0.3 ML SYRINGE SUBCUT SCH (08:30)
[2020-01-25] MEDS: INSULIN LISPRO 100 UNIT/ML SUBCUT SCH ×2 (08:30→11:32)
[2020-01-25] MEDS: POLYETHYLENE GLYCOL POWDER 17 GM PACK PO SCH (09:10)
[2020-01-25 12:11] VITALS: BP 107/65
[2020-01-25] MEDS ORDERED: POLYETHYLENE GLYCOL POWDER 17 GM PACK PO SCH (21:00)
[2020-01-26] MEDS ORDERED: RIVAROXABAN 10 MG TABLET PO SCH (09:00)
== END 2020-01-25 14:11 | DRG 207 ==
LOC: SUATTDRO 21:30 → N.2E 21:30 → N.ICU 12-28 11:05 → N.CC 01-04 18:04 → N.2W 01-17 12:01 → N.2E 01-19 14:03
PROVIDERS: ADMIT Internal Medicine; ATTEND Hospitalist

== ENCOUNTER 2020-07-18 06:42 | Inpatient (IN) ==
[2020-07-17 15:48] LABS: Basophils % 0.4 % (0.0-0.8); Eosinophils # 0.2 10*3/uL (0.0-0.87); Eosinophils % 1.5 % (0.00-10.9); Hematocrit 34.3 VOL% (35.7-47.0); Hemoglobin 10.8 GM/DL (12.0-16.0); Immature Granulocytes % 1.4 %; Immature Granulocytes Absolute 0.14 #; Lymphocytes # 2.5 10*3/uL (1.4-4.0); Mean Corpuscular HGB Conc 31.5 GM/DL (32-36); Mean Corpuscular Volume 86.6 FL (87-102); Mean Platelet Volume 10.4 FL (9.6-12.0); Monocytes % 7.2 % (1.7-12.7); Neutrophils % 65.5 % (38.7-73.9); Platelet Count 314 T/CUMM (130-400); Red Blood Count 3.96 MC/CUMM (3.8-5.5); Red Cell Distribution Width 13.6 % (9.3-17.3); White Blood Count 10.2 T/CUMM (4-12)
[2020-07-17 16:05] LABS: Calcium 9.7 MG/DL (8.5-10.1); Osmolality,Calculated 290.8 MOS/KG (273-304)
[~2020-07-18 06:42] MED LIST: DEXAMETHASONE 4 MG/1 ML VIAL IV ONE; OXYMETAZOLINE 0.05% NASAL SPRAY 15 ML BOTTLE ONE
[2020-07-18] MEDS ORDERED: LACTATED RINGERS 1,000 ML IV SCH (08:00)
[2020-07-18] MEDS ORDERED: DEXTROSE 50% 25 GM/50 ML VIAL IV ONE (08:56)
[2020-07-18] MEDS ORDERED: KETAMINE 500 MG/10 ML VIAL ONE (12:44)
[2020-07-18] MEDS ORDERED: DEXAMETHASONE 10 MG/1 ML VIAL ONE (12:51)
[2020-07-18] MEDS ORDERED: SEVOFLURANE 1 UNIT/15 MINUTE INH ONE (13:24)
[2020-07-18] MEDS ORDERED: LACTATED RINGERS 1,000 ML IV ONE (13:24)
[2020-07-18] MEDS ORDERED: propofoL 200 MG/20 ML VIAL IV ONE ×2 (13:24→13:52)
[2020-07-18] MEDS ORDERED: LIDOCAINE 50 MG/5 ML SYRINGE ONE (13:45)
[2020-07-18] MEDS ORDERED: SUCCINYLCHOLINE 200 MG/10 ML VIAL ONE (13:52)
[2020-07-18 13:55] LABS: ABG Base Excess 0.4 MMOL/L (-2.5-2.5); ABG HCO3 24.6 MMOL/L (20-26); ABG Oxygen Saturation 85.9 % (95-100); ABG PO2 69.6 MM HG (80-95); ABG TCO2 34.4 MMOL/L (23-27)
[2020-07-18 14:01] LABS: ABG PH 7.061 (7.35-7.45)
[2020-07-18 15:41] LABS: Bacteria,Urine Many /HPF (Few); Bilirubin,Urine Negative (Negative); Blood, Urine Small mg/dL (Negative); Glucose,Urine (UA) Negative (Negative); Ketones,Urine Negative (Negative); Nitrite,Urine Negative (Negative); Protein,Urine 100 MG/DL; Urine Appearance CLEAR (Clear); Urine Color Straw (Yellow); Urine Urobilinogen < 2.0 EU/DL (0.2-1.0); WBC,Urine 3 /HPF (0-6)
[2020-07-18] MEDS ORDERED: FLUTICASONE/SALMETEROL 100-50 DISKUS 14 DOSE INH PRN (16:22)
[2020-07-18 16:44] LABS: Allen Test Positive; Pt O2 Delivery Device Ventilator
[2020-07-18 16:45] LABS: ABG Base Excess 4.6 MMOL/L (-2.5-2.5); ABG HCO3 28.6 MMOL/L (20-26); ABG PCO2 49.7 MM HG (35-48); ABG PH 7.394 (7.35-7.45); ABG TCO2 27.7 MMOL/L (23-27)
[2020-07-18] MEDS: INSULIN LISPRO 100 UNIT/ML SUBCUT SCH ×2 (18:11→23:41)
[2020-07-18] MEDS: DEXAMETHASONE 4 MG/1 ML VIAL IV SCH (20:59)
[2020-07-18] MEDS: AMITRIPTYLINE 10 MG TABLET PO SCH (20:59)
[2020-07-18] MEDS: INSULIN GLARGINE 100 UNIT/ML SUBCUT SCH (21:00)
[2020-07-19 04:19] LABS: Basophils % 0.1 % (0.0-0.8); Hematocrit 31.8 VOL% (35.7-47.0); Hemoglobin 10.1 GM/DL (12.0-16.0); Lymphocytes # 1.1 10*3/uL (1.4-4.0); Lymphocytes % 10.6 % (21.3-54.2); Mean Corpuscular HGB Conc 31.8 GM/DL (32-36); Mean Platelet Volume 9.9 FL (9.6-12.0); Monocytes % 3.9 % (1.7-12.7); Neutrophils % 84.4 % (38.7-73.9); Platelet Count 289 T/CUMM (130-400); Red Blood Count 3.74 MC/CUMM (3.8-5.5); Red Cell Distribution Width 13.5 % (9.3-17.3); White Blood Count 10.2 T/CUMM (4-12)
[2020-07-19 04:23] LABS: ABG Base Excess 4.8 MMOL/L (-2.5-2.5); ABG HCO3 28.8 MMOL/L (20-26); ABG PCO2 44.4 MM HG (35-48); ABG PH 7.434 (7.35-7.45); ABG TCO2 26.4 MMOL/L (23-27); Allen Test Positive; Pt O2 Delivery Device Ventilator
[2020-07-19 04:38] LABS: Calcium 9.5 MG/DL (8.5-10.1); Osmolality,Calculated 297.3 MOS/KG (273-304)
[2020-07-19] MEDS: DEXAMETHASONE 4 MG/1 ML VIAL IV SCH ×3 (05:16→21:31)
[2020-07-19] MEDS: INSULIN LISPRO 100 UNIT/ML SUBCUT SCH ×3 (05:30→18:00)
[2020-07-19] MEDS ORDERED: predniSONE 10 MG TABLET PO SCH (09:00)
[2020-07-19] MEDS ORDERED: PANTOPRAZOLE 40 MG TABLET PO SCH (09:00)
[2020-07-19] MEDS ORDERED: DOCUSATE SODIUM 100 MG CAPSULE PO SCH (09:00)
[2020-07-19] MEDS ORDERED: DEXTROSE 50% 25 GM/50 ML VIAL IV PRN (09:46)
[2020-07-19] MEDS ORDERED: GLUCAGON 1 MG VIAL IM PRN (09:46)
[2020-07-19] MEDS: allopurinoL 100 MG TABLET PO SCH (10:15)
[2020-07-19] MEDS: MONTELUKAST 10 MG TABLET PO SCH (10:15)
[2020-07-19] MEDS: amLODIPine 5 MG TABLET PO SCH (10:15)
[2020-07-19] MEDS: INSULIN GLARGINE 100 UNIT/ML SUBCUT SCH ×2 (10:16→21:30)
[2020-07-19] MEDS: FLUTICASONE 50 MCG NASAL SPRAY 16 GM BOTTLE BOTH NARES SCH (10:16)
[2020-07-19] MEDS: DOCUSATE SODIUM 100 MG/10 ML UDCUP NG SCH (10:17)
[2020-07-19] MEDS: PANTOPRAZOLE 40 MG VIAL IV SCH (10:17)
[2020-07-19] MEDS ORDERED: ALBUTEROL/IPRATROPIUM 3 ML NEB RESP TX PRN (12:16)
[2020-07-19] MEDS ORDERED: SUCCINYLCHOLINE 200 MG/10 ML VIAL ONE (12:45)
[2020-07-19] MEDS ORDERED: LORazepam 2 MG/1 ML VIAL IV ONE (13:00)
[2020-07-19] MEDS ORDERED: ALBUTEROL/IPRATROPIUM 3 ML NEB RESP TX ONE (13:01)
[2020-07-19] MEDS ORDERED: LORazepam 2 MG/1 ML VIAL ONE (13:03)
[2020-07-19] MEDS ORDERED: LABETALOL 20 MG/4 ML SYRINGE IV ONE (13:08)
[2020-07-19] MEDS ORDERED: RACEPINEPHRINE 0.5 ML NEB RESP TX ONE (13:13)
[2020-07-19] MEDS ORDERED: propofoL 200 MG/20 ML VIAL IV ONE (13:14)
[2020-07-19] MEDS ORDERED: SUCCINYLCHOLINE 200 MG/10 ML VIAL IV ONE (13:15)
[2020-07-19] MEDS ORDERED: RACEPINEPHRINE 0.5 ML NEB RESP TX STA (13:15)
[2020-07-19 15:10] LABS: ABG Base Excess 3.9 MMOL/L (-2.5-2.5); ABG HCO3 27.9 MMOL/L (20-26); ABG Oxygen Saturation 99.7 % (95-100); ABG PCO2 46.8 MM HG (35-48); ABG PH 7.403 (7.35-7.45); ABG TCO2 26.7 MMOL/L (23-27)
[2020-07-19] MEDS: ALBUTEROL/IPRATROPIUM 3 ML NEB RESP TX SCH (19:37)
[2020-07-19] MEDS: AMITRIPTYLINE 10 MG TABLET PO SCH (21:30)
[2020-07-19] MEDS: ENOXAPARIN 40 MG/0.4 ML SYRINGE SUBCUT SCH (21:30)
[2020-07-19] MEDS: MORPHINE 4 MG/1 ML VIAL IV PRN (22:50)
[2020-07-20] MEDS: ALBUTEROL/IPRATROPIUM 3 ML NEB RESP TX SCH ×4 (01:40→19:46)
[2020-07-20] MEDS: INSULIN LISPRO 100 UNIT/ML SUBCUT SCH ×4 (01:43→18:21)
[2020-07-20 03:02] LABS: ABG Base Excess 3.6 MMOL/L (-2.5-2.5); ABG HCO3 27.6 MMOL/L (20-26); ABG Oxygen Saturation 99.3 % (95-100); ABG PH 7.412 (7.35-7.45); ABG TCO2 26.1 MMOL/L (23-27); Allen Test Positive; Pt O2 Delivery Device Ventilator
[2020-07-20] MEDS: HYDROcod/ACETAMIN 7.5-325 MG/15 ML UDCUP PO PRN ×2 (03:30→16:23)
[2020-07-20] MEDS: DEXAMETHASONE 4 MG/1 ML VIAL IV SCH ×3 (04:07→21:35)
[2020-07-20 04:52] LABS: Basophils % 0.2 % (0.0-0.8); Hematocrit 30.4 VOL% (35.7-47.0); Hemoglobin 9.6 GM/DL (12.0-16.0); Immature Granulocytes % 1.3 %; Immature Granulocytes Absolute 0.14 #; Lymphocytes # 0.9 10*3/uL (1.4-4.0); Lymphocytes % 8.2 % (21.3-54.2); Mean Corpuscular HGB Conc 31.6 GM/DL (32-36); Mean Corpuscular Volume 86.4 FL (87-102); Mean Platelet Volume 10.2 FL (9.6-12.0); Monocytes % 5.6 % (1.7-12.7); Neutrophils % 84.7 % (38.7-73.9); Platelet Count 287 T/CUMM (130-400); Red Blood Count 3.52 MC/CUMM (3.8-5.5); Red Cell Distribution Width 13.9 % (9.3-17.3); White Blood Count 11.2 T/CUMM (4-12)
[2020-07-20 05:08] LABS: Calcium 9.4 MG/DL (8.5-10.1); Osmolality,Calculated 298.1 MOS/KG (273-304)
[2020-07-20] MEDS: MONTELUKAST 10 MG TABLET PO SCH (09:00)
[2020-07-20] MEDS: PANTOPRAZOLE 40 MG VIAL IV SCH (09:00)
[2020-07-20] MEDS: MORPHINE 4 MG/1 ML VIAL IV PRN (09:01)
[2020-07-20] MEDS: amLODIPine 5 MG TABLET PO SCH (09:01)
[2020-07-20] MEDS: allopurinoL 100 MG TABLET PO SCH (09:01)
[2020-07-20] MEDS: DOCUSATE SODIUM 100 MG/10 ML UDCUP NG SCH (09:07)
[2020-07-20] MEDS: FLUTICASONE 50 MCG NASAL SPRAY 16 GM BOTTLE BOTH NARES SCH (09:08)
[2020-07-20] MEDS: INSULIN GLARGINE 100 UNIT/ML SUBCUT SCH ×2 (09:08→21:51)
[2020-07-20] MEDS: AMITRIPTYLINE 10 MG TABLET PO SCH (21:51)
[2020-07-20] MEDS: ENOXAPARIN 40 MG/0.4 ML SYRINGE SUBCUT SCH (21:52)
[2020-07-21] MEDS: INSULIN LISPRO 100 UNIT/ML SUBCUT SCH ×4 (00:53→17:50)
[2020-07-21] MEDS: ALBUTEROL/IPRATROPIUM 3 ML NEB RESP TX SCH ×4 (01:35→19:13)
[2020-07-21] MEDS: DEXAMETHASONE 4 MG/1 ML VIAL IV SCH ×3 (05:00→21:46)
[2020-07-21 05:52] LABS: Calcium 9.5 MG/DL (8.5-10.1); Osmolality,Calculated 297.1 MOS/KG (273-304)
[2020-07-21 06:04] LABS: Allen Test Positive; Pt O2 Delivery Device Ventilator
[2020-07-21 06:08] LABS: ABG Base Excess 2.6 MMOL/L (-2.5-2.5); ABG HCO3 27.5 MMOL/L (20-26); ABG Oxygen Saturation 98.4 % (95-100); ABG PCO2 43.4 MM HG (35-48); ABG PH 7.419 (7.35-7.45); ABG PO2 144.2 MM HG (80-95); ABG TCO2 28.8 MMOL/L (23-27)
[2020-07-21] MEDS: FLUTICASONE 50 MCG NASAL SPRAY 16 GM BOTTLE BOTH NARES SCH (08:49)
[2020-07-21] MEDS: DOCUSATE SODIUM 100 MG/10 ML UDCUP NG SCH (08:49)
[2020-07-21] MEDS: amLODIPine 5 MG TABLET PO SCH (08:50)
[2020-07-21] MEDS: MONTELUKAST 10 MG TABLET PO SCH (08:50)
[2020-07-21] MEDS: INSULIN GLARGINE 100 UNIT/ML SUBCUT SCH ×2 (08:50→21:48)
[2020-07-21] MEDS: PANTOPRAZOLE 40 MG VIAL IV SCH (08:50)
[2020-07-21] MEDS: allopurinoL 100 MG TABLET PO SCH (08:50)
[2020-07-21] MEDS: MORPHINE 4 MG/1 ML VIAL IV PRN (12:16)
[2020-07-21] MEDS: AMITRIPTYLINE 10 MG TABLET PO SCH (21:47)
[2020-07-21] MEDS: ENOXAPARIN 40 MG/0.4 ML SYRINGE SUBCUT SCH (21:48)
[2020-07-22] MEDS: INSULIN LISPRO 100 UNIT/ML SUBCUT SCH ×4 (00:37→18:01)
[2020-07-22] MEDS: ALBUTEROL/IPRATROPIUM 3 ML NEB RESP TX SCH ×4 (01:11→19:38)
[2020-07-22 04:21] LABS: ABG Base Excess 2.5 MMOL/L (-2.5-2.5); ABG HCO3 26.4 MMOL/L (20-26); ABG Oxygen Saturation 98.6 % (95-100); ABG PH 7.459 (7.35-7.45); ABG PO2 145.1 MM HG (80-95); ABG TCO2 27.5 MMOL/L (23-27); Allen Test Positive; Pt O2 Delivery Device Ventilator
[2020-07-22] MEDS: DEXAMETHASONE 4 MG/1 ML VIAL IV SCH ×3 (05:00→20:52)
[2020-07-22] MEDS: MORPHINE 4 MG/1 ML VIAL IV PRN (06:07)
[2020-07-22] MEDS: DOCUSATE SODIUM 100 MG/10 ML UDCUP NG SCH (09:06)
[2020-07-22] MEDS: allopurinoL 100 MG TABLET PO SCH (09:07)
[2020-07-22] MEDS: FLUTICASONE 50 MCG NASAL SPRAY 16 GM BOTTLE BOTH NARES SCH (09:07)
[2020-07-22] MEDS: PANTOPRAZOLE 40 MG VIAL IV SCH (09:07)
[2020-07-22] MEDS: INSULIN GLARGINE 100 UNIT/ML SUBCUT SCH ×2 (09:07→21:27)
[2020-07-22] MEDS: MONTELUKAST 10 MG TABLET PO SCH (09:07)
[2020-07-22] MEDS: amLODIPine 5 MG TABLET PO SCH (09:07)
[2020-07-22] MEDS: ENOXAPARIN 40 MG/0.4 ML SYRINGE SUBCUT SCH (21:26)
[2020-07-22] MEDS: AMITRIPTYLINE 10 MG TABLET PO SCH (21:32)
[2020-07-23] MEDS: INSULIN LISPRO 100 UNIT/ML SUBCUT SCH ×4 (00:03→17:33)
[2020-07-23] MEDS: ALBUTEROL/IPRATROPIUM 3 ML NEB RESP TX SCH ×4 (00:45→19:12)
[2020-07-23 04:29] LABS: Basophils % 0.1 % (0.0-0.8); Hematocrit 30.7 VOL% (35.7-47.0); Hemoglobin 9.6 GM/DL (12.0-16.0); Immature Granulocytes % 2.6 %; Immature Granulocytes Absolute 0.37 #; Lymphocytes # 0.7 10*3/uL (1.4-4.0); Lymphocytes % 4.9 % (21.3-54.2); Mean Corpuscular HGB Conc 31.3 GM/DL (32-36); Mean Corpuscular Volume 86.7 FL (87-102); Mean Platelet Volume 9.8 FL (9.6-12.0); Monocytes % 7.5 % (1.7-12.7); Neutrophils % 84.9 % (38.7-73.9); Platelet Count 275 T/CUMM (130-400); Red Blood Count 3.54 MC/CUMM (3.8-5.5); Red Cell Distribution Width 13.4 % (9.3-17.3); White Blood Count 14.3 T/CUMM (4-12)
[2020-07-23 04:54] LABS: ABG Base Excess -0.3 MMOL/L (-2.5-2.5); ABG HCO3 24.5 MMOL/L (20-26); ABG Oxygen Saturation 98.7 % (95-100); ABG PCO2 40.7 MM HG (35-48); ABG PH 7.397 (7.35-7.45); ABG PO2 155.5 MM HG (80-95); ABG TCO2 25.7 MMOL/L (23-27); Allen Test Positive; Pt O2 Delivery Device Ventilator
[2020-07-23 05:11] LABS: Calcium 9.3 MG/DL (8.5-10.1); Osmolality,Calculated 304.1 MOS/KG (273-304)
[2020-07-23] MEDS: DEXAMETHASONE 4 MG/1 ML VIAL IV SCH ×3 (05:17→22:45)
[2020-07-23 07:20] LABS: Hypochromasia 1+; Lymphocytes 2 % (20-55); Metamyelocytes 2 %; Platelet Estimate Normal; Polychromasia Slight; Segmented Neutrophils 88 % (50-85); Total Cells Counted 100
[2020-07-23] MEDS: PANTOPRAZOLE 40 MG VIAL IV SCH (09:25)
[2020-07-23] MEDS: INSULIN GLARGINE 100 UNIT/ML SUBCUT SCH ×2 (09:25→22:49)
[2020-07-23] MEDS: amLODIPine 5 MG TABLET PO SCH (09:25)
[2020-07-23] MEDS: FLUTICASONE 50 MCG NASAL SPRAY 16 GM BOTTLE BOTH NARES SCH (09:25)
[2020-07-23] MEDS: DOCUSATE SODIUM 100 MG/10 ML UDCUP NG SCH (09:25)
[2020-07-23] MEDS: allopurinoL 100 MG TABLET PO SCH (09:26)
[2020-07-23] MEDS: MONTELUKAST 10 MG TABLET PO SCH (09:26)
[2020-07-23] MEDS ORDERED: INSULIN GLARGINE 100 UNIT/ML SUBCUT ONE (10:32)
[2020-07-23] MEDS: ENOXAPARIN 40 MG/0.4 ML SYRINGE SUBCUT SCH (22:48)
[2020-07-23] MEDS: AMITRIPTYLINE 10 MG TABLET PO SCH (22:52)
[2020-07-24] MEDS: ALBUTEROL/IPRATROPIUM 3 ML NEB RESP TX SCH ×4 (00:24→19:42)
[2020-07-24] MEDS: INSULIN LISPRO 100 UNIT/ML SUBCUT SCH ×6 (00:34→23:18)
[2020-07-24 04:47] LABS: ABG Base Excess -1.4 MMOL/L (-2.5-2.5); ABG HCO3 23.2 MMOL/L (20-26); ABG Oxygen Saturation 99.3 % (95-100); ABG PCO2 41.4 MM HG (35-48); ABG PH 7.368 (7.35-7.45); ABG TCO2 21.4 MMOL/L (23-27); Allen Test Positive; Pt O2 Delivery Device Ventilator
[2020-07-24] MEDS: DEXAMETHASONE 4 MG/1 ML VIAL IV SCH ×3 (05:18→21:09)
[2020-07-24] MEDS: MONTELUKAST 10 MG TABLET PO SCH (09:18)
[2020-07-24] MEDS: INSULIN GLARGINE 100 UNIT/ML SUBCUT SCH (09:18)
[2020-07-24] MEDS: amLODIPine 5 MG TABLET PO SCH (09:18)
[2020-07-24] MEDS: allopurinoL 100 MG TABLET PO SCH (09:18)
[2020-07-24] MEDS: DOCUSATE SODIUM 100 MG/10 ML UDCUP NG SCH (09:18)
[2020-07-24] MEDS: PANTOPRAZOLE 40 MG VIAL IV SCH (09:20)
[2020-07-24] MEDS: FLUTICASONE 50 MCG NASAL SPRAY 16 GM BOTTLE BOTH NARES SCH (11:54)
[2020-07-24] MEDS ORDERED: LORazepam 2 MG/1 ML VIAL ONE (12:07)
[2020-07-24] MEDS ORDERED: LORazepam 2 MG/1 ML VIAL IV ONE ×2 (12:09→12:31)
[2020-07-24] MEDS ORDERED: ETOMIDATE 20 MG/10 ML VIAL IV ONE (12:18)
[2020-07-24] MEDS ORDERED: SUCCINYLCHOLINE 200 MG/10 ML VIAL ONE (12:19)
[2020-07-24] MEDS ORDERED: LABETALOL 20 MG/4 ML SYRINGE IV ONE ×2 (12:32→20:35)
[2020-07-24] MEDS ORDERED: flumazeniL 0.5 MG/5 ML VIAL IV ONE ×3 (12:41→13:02)
[2020-07-24] MEDS ORDERED: RACEPINEPHRINE 0.5 ML NEB RESP TX ONE ×2 (12:41→13:23)
[2020-07-24] MEDS: MORPHINE 4 MG/1 ML VIAL IV PRN (14:37)
[2020-07-24 21:12] LABS: Allen Test Positive; Pt O2 Delivery Device BIPAP
[2020-07-24] MEDS ORDERED: FUROSEMIDE 40 MG/4 ML VIAL IV ONE (21:13)
[2020-07-24 21:14] LABS: ABG Base Excess -4.3 MMOL/L (-2.5-2.5); ABG HCO3 20.8 MMOL/L (20-26); ABG Oxygen Saturation 94.4 % (95-100); ABG PO2 88.9 MM HG (80-95); ABG TCO2 24.2 MMOL/L (23-27)
[2020-07-24 21:17] LABS: ABG PCO2 71.4 MM HG (35-48); ABG PH 7.172 (7.35-7.45)
[2020-07-24 22:49] LABS: Bacteria,Urine Many /HPF (Few); Bilirubin,Urine Negative (Negative); Blood, Urine Large mg/dL (Negative); Glucose,Urine (UA) Negative (Negative); Ketones,Urine Negative (Negative); Mucus,Urine Occasional /LPF (Occasional); Nitrite,Urine Negative (Negative); Protein,Urine 100 MG/DL; RBC,Urine 1523 /HPF (0-4); Urine Appearance CLOUDY (Clear); Urine Color Amber (Yellow); Urine Specific Gravity 1.018 (1.001-1.035); Urine Urobilinogen < 2.0 EU/DL (0.2-1.0); WBC,Urine 40 /HPF (0-6)
[2020-07-24 23:05] LABS: ABG Base Excess -3.6 MMOL/L (-2.5-2.5); ABG HCO3 21.3 MMOL/L (20-26); ABG Oxygen Saturation 90.5 % (95-100); ABG PCO2 55.8 MM HG (35-48); ABG PH 7.251 (7.35-7.45); ABG PO2 66.8 MM HG (80-95); ABG TCO2 22.3 MMOL/L (23-27)
[2020-07-24] MEDS: AMITRIPTYLINE 10 MG TABLET PO SCH (23:38)
[2020-07-24] MEDS: ENOXAPARIN 40 MG/0.4 ML SYRINGE SUBCUT SCH (23:40)
[2020-07-25] MEDS: ALBUTEROL/IPRATROPIUM 3 ML NEB RESP TX SCH ×4 (01:12→19:16)
[2020-07-25] MEDS: INSULIN GLARGINE 100 UNIT/ML SUBCUT SCH ×3 (01:35→22:07)
[2020-07-25 02:12] LABS: ABG Base Excess -2.9 MMOL/L (-2.5-2.5); ABG HCO3 21.8 MMOL/L (20-26); ABG Oxygen Saturation 89.5 % (95-100); ABG PCO2 54.1 MM HG (35-48); ABG PO2 61.9 MM HG (80-95); ABG TCO2 22.4 MMOL/L (23-27)
[2020-07-25] MEDS ORDERED: LORazepam 2 MG/1 ML VIAL IV ONE (03:19)
[2020-07-25 03:54] LABS: ABG Base Excess -4.3 MMOL/L (-2.5-2.5); ABG HCO3 20.6 MMOL/L (20-26); ABG Oxygen Saturation 84.5 % (95-100); ABG PCO2 65.4 MM HG (35-48); ABG PO2 57.3 MM HG (80-95); ABG TCO2 23.2 MMOL/L (23-27)
[2020-07-25 03:57] LABS: ABG PH 7.198 (7.35-7.45)
[2020-07-25] MEDS: DEXAMETHASONE 4 MG/1 ML VIAL IV SCH ×3 (03:59→17:43)
[2020-07-25] MEDS ORDERED: ETOMIDATE 20 MG/10 ML VIAL IV ONE ×2 (04:16→04:24)
[2020-07-25] MEDS ORDERED: SUCCINYLCHOLINE 200 MG/10 ML VIAL ONE (04:16)
[2020-07-25] MEDS ORDERED: SUCCINYLCHOLINE 200 MG/10 ML VIAL IV ONE (04:24)
[2020-07-25 05:35] LABS: ABG Base Excess -5.1 MMOL/L (-2.5-2.5); ABG HCO3 20.1 MMOL/L (20-26); ABG Oxygen Saturation 89.8 % (95-100); ABG PCO2 46.4 MM HG (35-48); ABG PH 7.281 (7.35-7.45); ABG PO2 61.4 MM HG (80-95); ABG TCO2 19.6 MMOL/L (23-27)
[2020-07-25 05:49] LABS: Basophils # 0.2 10*3/uL (0.0-0.2); Basophils % 0.7 % (0.0-0.8); Eosinophils # 0.1 10*3/uL (0.0-0.87); Eosinophils % 0.4 % (0.00-10.9); Hematocrit 39.9 VOL% (35.7-47.0); Immature Granulocytes % 2.7 %; Immature Granulocytes Absolute 0.64 #; Lymphocytes # 0.7 10*3/uL (1.4-4.0); Lymphocytes % 3.1 % (21.3-54.2); Mean Corpuscular HGB Conc 30.1 GM/DL (32-36); Mean Corpuscular Volume 88.5 FL (87-102); Mean Platelet Volume 10.1 FL (9.6-12.0); Monocytes % 7.1 % (1.7-12.7); Platelet Count 346 T/CUMM (130-400); Red Blood Count 4.51 MC/CUMM (3.8-5.5); Red Cell Distribution Width 13.6 % (9.3-17.3); White Blood Count 23.8 T/CUMM (4-12)
[2020-07-25 06:13] LABS: Band Neutrophils 4 % (0-10); Lymphocytes 3 % (20-55); Platelet Estimate Adequate; Segmented Neutrophils 87 % (50-85); Total Cells Counted 100
[2020-07-25 06:14] LABS: Hypochromasia 1+
[2020-07-25 06:21] LABS: Calcium 9.5 MG/DL (8.5-10.1); Osmolality,Calculated 311.6 MOS/KG (273-304)
[2020-07-25] MEDS: INSULIN LISPRO 100 UNIT/ML SUBCUT SCH ×6 (06:35→22:16)
[2020-07-25] MEDS: MORPHINE 4 MG/1 ML VIAL IV PRN (09:54)
[2020-07-25 10:18] LABS: ABG Base Excess -3.4 MMOL/L (-2.5-2.5); ABG HCO3 21.6 MMOL/L (20-26); ABG Oxygen Saturation 99.3 % (95-100); ABG PH 7.333 (7.35-7.45); ABG TCO2 20.2 MMOL/L (23-27)
[2020-07-25] MEDS: PANTOPRAZOLE 40 MG VIAL IV SCH (10:20)
[2020-07-25] MEDS: FLUTICASONE 50 MCG NASAL SPRAY 16 GM BOTTLE BOTH NARES SCH (10:36)
[2020-07-25] MEDS: MONTELUKAST 10 MG TABLET PO SCH ×2 (10:38→15:06)
[2020-07-25] MEDS: amLODIPine 5 MG TABLET PO SCH (10:38)
[2020-07-25] MEDS: allopurinoL 100 MG TABLET PO SCH ×2 (10:38→15:07)
[2020-07-25] MEDS: DOCUSATE SODIUM 100 MG/10 ML UDCUP NG SCH ×2 (10:38→15:07)
[2020-07-25] MEDS ORDERED: MICROFIBRILLAR COLLAGEN POWDER 1 GM CAN TOP ONE (11:45)
[2020-07-25] MEDS ORDERED: LIDOCAINE 1%/EPI INJ 20 ML VIAL ONE (11:45)
[2020-07-25] MEDS ORDERED: THROMBIN TOPICAL (RECOMBINANT) 5,000 UNIT VIAL TOP ONE (11:45)
[2020-07-25] MEDS ORDERED: MIDAZOLAM 10 MG/2 ML VIAL ONE (12:01)
[2020-07-25] MEDS ORDERED: PHENYLEPHRINE DRIP 40 MG/250 ML PREMIX IV PRN (12:50)
[2020-07-25] MEDS ORDERED: PHENYLEPHRINE DRIP 40 MG/250 ML PREMIX IV ONE (12:56)
[2020-07-25] MEDS ORDERED: ONDANSETRON 4 MG/2 ML VIAL IV PRN (13:52)
[2020-07-25] MEDS ORDERED: MEPERIDINE 50 MG/1 ML VIAL ONE (13:54)
[2020-07-25] MEDS: MEPERIDINE 50 MG/1 ML VIAL IV PRN ×2 (13:55→14:05)
[2020-07-25] MEDS: LACTATED RINGERS 1,000 ML IV SCH (14:10)
[2020-07-25] MEDS: fentaNYL INJ 1,250 MCG in SODIUM CHLORIDE 0.9% 225 ML IV PRN (14:10)
[2020-07-25] MEDS: MIDAZOLAM 100 MG in SODIUM CHLORIDE 0.9% 80 ML IV PRN (14:11)
[2020-07-25] MEDS: PIPERACILLIN/TAZOBACTAM 3,375 MG in SODIUM CHLORIDE 0.9% 100 ML IV SCH (17:40)
[2020-07-25] MEDS: ENOXAPARIN 40 MG/0.4 ML SYRINGE SUBCUT SCH (22:08)
[2020-07-25] MEDS: AMITRIPTYLINE 10 MG TABLET PO SCH (22:08)
[2020-07-26] MEDS: PIPERACILLIN/TAZOBACTAM 3,375 MG in SODIUM CHLORIDE 0.9% 100 ML IV SCH ×4 (01:08→23:50)
[2020-07-26] MEDS: ALBUTEROL/IPRATROPIUM 3 ML NEB RESP TX SCH ×4 (01:16→19:29)
[2020-07-26] MEDS: INSULIN LISPRO 100 UNIT/ML SUBCUT SCH ×6 (04:48→23:49)
[2020-07-26] MEDS: DEXAMETHASONE 4 MG/1 ML VIAL IV SCH ×2 (05:54→16:19)
[2020-07-26] MEDS: fentaNYL INJ 1,250 MCG in SODIUM CHLORIDE 0.9% 225 ML IV PRN ×2 (05:57→21:33)
[2020-07-26 05:58] LABS: ABG Base Excess -3.4 MMOL/L (-2.5-2.5); ABG HCO3 22.3 MMOL/L (20-26); ABG Oxygen Saturation 99.2 % (95-100); ABG PCO2 42.6 MM HG (35-48); ABG PH 7.336 (7.35-7.45); ABG PO2 233.6 MM HG (80-95); ABG TCO2 23.6 MMOL/L (23-27)
[2020-07-26 06:19] LABS: Calcium 9.1 MG/DL (8.5-10.1); Osmolality,Calculated 326.3 MOS/KG (273-304)
[2020-07-26 06:37] LABS: Basophils % 0.2 % (0.0-0.8); Hematocrit 29.9 VOL% (35.7-47.0); Immature Granulocytes % 1.3 %; Immature Granulocytes Absolute 0.17 #; Lymphocytes # 0.7 10*3/uL (1.4-4.0); Lymphocytes % 5.6 % (21.3-54.2); Mean Corpuscular HGB Conc 30.8 GM/DL (32-36); Mean Corpuscular Volume 88.5 FL (87-102); Mean Platelet Volume 10.9 FL (9.6-12.0); Monocytes % 5.5 % (1.7-12.7); Neutrophils % 87.4 % (38.7-73.9); Red Cell Distribution Width 13.6 % (9.3-17.3)
[2020-07-26 06:39] LABS: Hemoglobin 9.2 GM/DL (12.0-16.0); Platelet Count 237 T/CUMM (130-400); Red Blood Count 3.38 MC/CUMM (3.8-5.5); White Blood Count 12.9 T/CUMM (4-12)
[2020-07-26 06:51] LABS: Hypochromasia 1+; Lymphocytes 3 % (20-55); Microcytosis 1+; Platelet Estimate Adequate; Segmented Neutrophils 94 % (50-85); Total Cells Counted 100
[2020-07-26] MEDS: LACTATED RINGERS 1,000 ML IV SCH ×3 (08:03→21:50)
[2020-07-26] MEDS: FLUTICASONE 50 MCG NASAL SPRAY 16 GM BOTTLE BOTH NARES SCH (08:20)
[2020-07-26] MEDS: PANTOPRAZOLE 40 MG VIAL IV SCH (08:20)
[2020-07-26] MEDS: amLODIPine 5 MG TABLET PO SCH (08:20)
[2020-07-26] MEDS: DOCUSATE SODIUM 100 MG/10 ML UDCUP NG SCH (08:20)
[2020-07-26] MEDS: INSULIN GLARGINE 100 UNIT/ML SUBCUT SCH ×2 (08:20→20:42)
[2020-07-26] MEDS: MONTELUKAST 10 MG TABLET PO SCH (08:20)
[2020-07-26] MEDS: allopurinoL 100 MG TABLET PO SCH (08:21)
[2020-07-26] MEDS: MIDAZOLAM 100 MG in SODIUM CHLORIDE 0.9% 80 ML IV PRN (16:23)
[2020-07-26] MEDS: ENOXAPARIN 40 MG/0.4 ML SYRINGE SUBCUT SCH (20:42)
[2020-07-26] MEDS: AMITRIPTYLINE 10 MG TABLET PO SCH (20:42)
[2020-07-26] MEDS: hydrALAZINE 20 MG/1 ML VIAL IV PRN (23:26)
[2020-07-27] MEDS: ALBUTEROL/IPRATROPIUM 3 ML NEB RESP TX SCH ×4 (00:08→19:10)
[2020-07-27] MEDS: DEXAMETHASONE 4 MG/1 ML VIAL IV SCH ×3 (03:35→21:30)
[2020-07-27] MEDS: INSULIN LISPRO 100 UNIT/ML SUBCUT SCH ×5 (03:35→20:20)
[2020-07-27 03:40] LABS: ABG Base Excess -1.7 MMOL/L (-2.5-2.5); ABG Oxygen Saturation 97.2 % (95-100); ABG PCO2 41.1 MM HG (35-48); ABG PH 7.366 (7.35-7.45); ABG PO2 88.7 MM HG (80-95); ABG TCO2 21.9 MMOL/L (23-27)
[2020-07-27 03:52] LABS: Basophils % 0.2 % (0.0-0.8); Hematocrit 27.6 VOL% (35.7-47.0); Hemoglobin 8.3 GM/DL (12.0-16.0); Immature Granulocytes % 3.7 %; Immature Granulocytes Absolute 0.43 #; Mean Corpuscular HGB Conc 30.1 GM/DL (32-36); Mean Corpuscular Volume 89.3 FL (87-102); Mean Platelet Volume 10.4 FL (9.6-12.0); Monocytes % 6.3 % (1.7-12.7); Neutrophils % 80.8 % (38.7-73.9); Platelet Count 226 T/CUMM (130-400); Red Blood Count 3.09 MC/CUMM (3.8-5.5); Red Cell Distribution Width 13.6 % (9.3-17.3); White Blood Count 11.5 T/CUMM (4-12)
[2020-07-27 04:14] LABS: Calcium 9.1 MG/DL (8.5-10.1); Osmolality,Calculated 325.6 MOS/KG (273-304)
[2020-07-27 05:14] LABS: Hypochromasia 1+; Lymphocytes 10 % (20-55); Metamyelocytes 2 %; Microcytosis 1+; Segmented Neutrophils 83 % (50-85); Total Cells Counted 100
[2020-07-27 05:15] LABS: Platelet Estimate Normal
[2020-07-27] MEDS: hydrALAZINE 20 MG/1 ML VIAL IV PRN ×2 (05:21→12:13)
[2020-07-27] MEDS: PIPERACILLIN/TAZOBACTAM 3,375 MG in SODIUM CHLORIDE 0.9% 100 ML IV SCH ×2 (09:31→16:29)
[2020-07-27] MEDS: FLUTICASONE 50 MCG NASAL SPRAY 16 GM BOTTLE BOTH NARES SCH (09:32)
[2020-07-27] MEDS: amLODIPine 5 MG TABLET PO SCH (09:32)
[2020-07-27] MEDS: INSULIN GLARGINE 100 UNIT/ML SUBCUT SCH ×2 (09:32→20:23)
[2020-07-27] MEDS: DOCUSATE SODIUM 100 MG/10 ML UDCUP NG SCH (09:32)
[2020-07-27] MEDS: allopurinoL 100 MG TABLET PO SCH (09:33)
[2020-07-27] MEDS: MONTELUKAST 10 MG TABLET PO SCH (09:33)
[2020-07-27] MEDS: PANTOPRAZOLE 40 MG VIAL IV SCH (09:33)
[2020-07-27] MEDS ORDERED: POTASSIUM PHOSPHATE 15 MMOL in SODIUM CHLORIDE 0.9% 100 ML IV ONE (13:00)
[2020-07-27] MEDS: LACTATED RINGERS 1,000 ML IV SCH (14:38)
[2020-07-27] MEDS: fentaNYL INJ 1,250 MCG in SODIUM CHLORIDE 0.9% 225 ML IV PRN (19:11)
[2020-07-27] MEDS: ENOXAPARIN 40 MG/0.4 ML SYRINGE SUBCUT SCH (20:15)
[2020-07-27] MEDS: AMITRIPTYLINE 10 MG TABLET PO SCH (20:15)
[2020-07-27] MEDS: MIDAZOLAM 100 MG in SODIUM CHLORIDE 0.9% 80 ML IV PRN (23:31)
[2020-07-28] MEDS: PIPERACILLIN/TAZOBACTAM 3,375 MG in SODIUM CHLORIDE 0.9% 100 ML IV SCH ×3 (00:08→17:13)
[2020-07-28] MEDS: INSULIN LISPRO 100 UNIT/ML SUBCUT SCH ×6 (00:10→21:05)
[2020-07-28] MEDS: ALBUTEROL/IPRATROPIUM 3 ML NEB RESP TX SCH ×4 (01:01→18:25)
[2020-07-28 05:00] LABS: ABG Base Excess -0.2 MMOL/L (-2.5-2.5); ABG HCO3 24.2 MMOL/L (20-26); ABG Oxygen Saturation 99.1 % (95-100); ABG PCO2 41.7 MM HG (35-48); ABG PH 7.382 (7.35-7.45); ABG TCO2 23.1 MMOL/L (23-27)
[2020-07-28 06:30] LABS: Osmolality,Calculated 324.7 MOS/KG (273-304)
[2020-07-28 06:32] LABS: Basophils % 0.2 % (0.0-0.8); Eosinophils % 0.2 % (0.00-10.9); Hematocrit 28.3 VOL% (35.7-47.0); Hemoglobin 8.5 GM/DL (12.0-16.0); Immature Granulocytes Absolute 0.61 #; Lymphocytes # 0.9 10*3/uL (1.4-4.0); Mean Corpuscular Volume 90.1 FL (87-102); Mean Platelet Volume 10.7 FL (9.6-12.0); Monocytes % 6.7 % (1.7-12.7); Neutrophils % 75.9 % (38.7-73.9); Platelet Count 234 T/CUMM (130-400); Red Blood Count 3.14 MC/CUMM (3.8-5.5); Red Cell Distribution Width 13.5 % (9.3-17.3); White Blood Count 8.7 T/CUMM (4-12)
[2020-07-28 06:58] LABS: Anisocytosis Slight; Band Neutrophils 18 % (0-10); Hypochromasia Slight; Lymphocytes 9 % (20-55); Myelocytes 2 %; Platelet Estimate Normal; Segmented Neutrophils 66 % (50-85); Total Cells Counted 100
[2020-07-28 06:59] LABS: Macrocytosis Slight
[2020-07-28] MEDS: LACTATED RINGERS 1,000 ML IV SCH (08:56)
[2020-07-28] MEDS: FLUTICASONE 50 MCG NASAL SPRAY 16 GM BOTTLE BOTH NARES SCH (08:57)
[2020-07-28] MEDS: amLODIPine 5 MG TABLET PO SCH (08:57)
[2020-07-28] MEDS: INSULIN GLARGINE 100 UNIT/ML SUBCUT SCH ×2 (08:57→21:05)
[2020-07-28] MEDS: DOCUSATE SODIUM 100 MG/10 ML UDCUP NG SCH (08:57)
[2020-07-28] MEDS: allopurinoL 100 MG TABLET PO SCH (08:58)
[2020-07-28] MEDS: MONTELUKAST 10 MG TABLET PO SCH (08:58)
[2020-07-28] MEDS: PANTOPRAZOLE 40 MG VIAL IV SCH (08:59)
[2020-07-28] MEDS: DEXAMETHASONE 4 MG/1 ML VIAL IV SCH ×2 (09:01→21:06)
[2020-07-28] MEDS: hydrALAZINE 20 MG/1 ML VIAL IV PRN (10:48)
[2020-07-28] MEDS: ENOXAPARIN 40 MG/0.4 ML SYRINGE SUBCUT SCH (21:05)
[2020-07-28] MEDS: AMITRIPTYLINE 10 MG TABLET PO SCH (21:05)
[2020-07-28] MEDS: fentaNYL INJ 1,250 MCG in SODIUM CHLORIDE 0.9% 225 ML IV PRN (21:43)
[2020-07-29] MEDS: INSULIN LISPRO 100 UNIT/ML SUBCUT SCH ×6 (00:22→20:03)
[2020-07-29] MEDS: LACTATED RINGERS 1,000 ML IV SCH (00:22)
[2020-07-29] MEDS: PIPERACILLIN/TAZOBACTAM 3,375 MG in SODIUM CHLORIDE 0.9% 100 ML IV SCH ×3 (00:23→17:17)
[2020-07-29] MEDS: ALBUTEROL/IPRATROPIUM 3 ML NEB RESP TX SCH ×4 (02:43→20:33)
[2020-07-29 03:55] LABS: ABG Base Excess 1.8 MMOL/L (-2.5-2.5); ABG HCO3 26.7 MMOL/L (20-26); ABG Oxygen Saturation 98.7 % (95-100); ABG PCO2 43.1 MM HG (35-48); ABG PO2 152.7 MM HG (80-95)
[2020-07-29 04:00] LABS: Basophils % 0.2 % (0.0-0.8); Eosinophils # 0.1 10*3/uL (0.0-0.87); Eosinophils % 1.2 % (0.00-10.9); Hematocrit 29.2 VOL% (35.7-47.0); Hemoglobin 8.8 GM/DL (12.0-16.0); Immature Granulocytes % 5.1 %; Immature Granulocytes Absolute 0.51 #; Lymphocytes # 1.4 10*3/uL (1.4-4.0); Lymphocytes % 13.9 % (21.3-54.2); Mean Corpuscular HGB Conc 30.1 GM/DL (32-36); Mean Corpuscular Volume 89.3 FL (87-102); Mean Platelet Volume 10.3 FL (9.6-12.0); Monocytes % 6.4 % (1.7-12.7); Neutrophils % 73.2 % (38.7-73.9); Platelet Count 211 T/CUMM (130-400); Red Blood Count 3.27 MC/CUMM (3.8-5.5); Red Cell Distribution Width 13.2 % (9.3-17.3); White Blood Count 10.1 T/CUMM (4-12)
[2020-07-29 04:15] LABS: Calcium 8.8 MG/DL (8.5-10.1)
[2020-07-29 04:21] LABS: Band Neutrophils 3 % (0-10); Eosinophils 1 % (0-10); Hypochromasia Slight; Lymphocytes 11 % (20-55); Platelet Estimate Normal; Segmented Neutrophils 76 % (50-85); Total Cells Counted 100
[2020-07-29] MEDS: MIDAZOLAM 100 MG in SODIUM CHLORIDE 0.9% 80 ML IV PRN (04:30)
[2020-07-29] MEDS ORDERED: FUROSEMIDE 40 MG/4 ML VIAL IV ONE (08:46)
[2020-07-29] MEDS: MONTELUKAST 10 MG TABLET PO SCH (08:58)
[2020-07-29] MEDS: DOCUSATE SODIUM 100 MG/10 ML UDCUP NG SCH (08:58)
[2020-07-29] MEDS: INSULIN GLARGINE 100 UNIT/ML SUBCUT SCH ×2 (08:58→21:14)
[2020-07-29] MEDS: amLODIPine 5 MG TABLET PO SCH (08:58)
[2020-07-29] MEDS: allopurinoL 100 MG TABLET PO SCH (08:59)
[2020-07-29] MEDS: DEXAMETHASONE 4 MG/1 ML VIAL IV SCH ×2 (08:59→21:15)
[2020-07-29] MEDS: PANTOPRAZOLE 40 MG VIAL IV SCH (09:01)
[2020-07-29] MEDS: FLUTICASONE 50 MCG NASAL SPRAY 16 GM BOTTLE BOTH NARES SCH (09:17)
[2020-07-29] MEDS: hydrALAZINE 20 MG/1 ML VIAL IV PRN (11:31)
[2020-07-29] MEDS: AMITRIPTYLINE 10 MG TABLET PO SCH (21:13)
[2020-07-29] MEDS: ENOXAPARIN 40 MG/0.4 ML SYRINGE SUBCUT SCH (21:13)
[2020-07-30] MEDS: INSULIN LISPRO 100 UNIT/ML SUBCUT SCH ×6 (00:15→19:25)
[2020-07-30] MEDS: PIPERACILLIN/TAZOBACTAM 3,375 MG in SODIUM CHLORIDE 0.9% 100 ML IV SCH ×3 (00:15→16:56)
[2020-07-30] MEDS: fentaNYL INJ 1,250 MCG in SODIUM CHLORIDE 0.9% 225 ML IV PRN ×2 (00:19→16:57)
[2020-07-30] MEDS: ALBUTEROL/IPRATROPIUM 3 ML NEB RESP TX SCH ×4 (03:33→20:20)
[2020-07-30 04:47] LABS: ABG Base Excess 5.8 MMOL/L (-2.5-2.5); ABG HCO3 29.6 MMOL/L (20-26); ABG Oxygen Saturation 98.2 % (95-100); ABG PCO2 41.1 MM HG (35-48); ABG PO2 97.7 MM HG (80-95); ABG TCO2 26.7 MMOL/L (23-27)
[2020-07-30 05:01] LABS: Basophils % 0.1 % (0.0-0.8); Eosinophils # 0.2 10*3/uL (0.0-0.87); Eosinophils % 1.6 % (0.00-10.9); Hematocrit 30.7 VOL% (35.7-47.0); Hemoglobin 9.5 GM/DL (12.0-16.0); Immature Granulocytes % 3.7 %; Lymphocytes # 2.2 10*3/uL (1.4-4.0); Lymphocytes % 15.9 % (21.3-54.2); Mean Corpuscular HGB Conc 30.9 GM/DL (32-36); Mean Corpuscular Volume 87.2 FL (87-102); Mean Platelet Volume 10.4 FL (9.6-12.0); Monocytes % 4.7 % (1.7-12.7); Platelet Count 224 T/CUMM (130-400); Red Blood Count 3.52 MC/CUMM (3.8-5.5); Red Cell Distribution Width 13.2 % (9.3-17.3); White Blood Count 13.7 T/CUMM (4-12)
[2020-07-30 05:20] LABS: Albumin 1.8 G/DL (3.4-5.0); Bilirubin,Total 0.7 MG/DL (0.2-1.0); Calcium 8.6 MG/DL (8.5-10.1); Osmolality,Calculated 308.6 MOS/KG (273-304); Total Protein 6.8 G/DL (6.4-8.3)
[2020-07-30] MEDS ORDERED: FUROSEMIDE 40 MG/4 ML VIAL IV ONE (07:49)
[2020-07-30] MEDS: FLUTICASONE 50 MCG NASAL SPRAY 16 GM BOTTLE BOTH NARES SCH (09:25)
[2020-07-30] MEDS: INSULIN GLARGINE 100 UNIT/ML SUBCUT SCH ×2 (09:25→20:48)
[2020-07-30] MEDS: PANTOPRAZOLE 40 MG VIAL IV SCH (09:44)
[2020-07-30] MEDS: DEXAMETHASONE 4 MG/1 ML VIAL IV SCH ×2 (09:46→20:47)
[2020-07-30] MEDS: DOCUSATE SODIUM 100 MG/10 ML UDCUP NG SCH (09:48)
[2020-07-30] MEDS: amLODIPine 5 MG TABLET PO SCH (09:48)
[2020-07-30] MEDS: allopurinoL 100 MG TABLET PO SCH (09:48)
[2020-07-30] MEDS: MONTELUKAST 10 MG TABLET PO SCH (09:48)
[2020-07-30] MEDS: MIDAZOLAM 100 MG in SODIUM CHLORIDE 0.9% 80 ML IV PRN (16:19)
[2020-07-30] MEDS: FUROSEMIDE 40 MG/4 ML VIAL IV SCH (16:52)
[2020-07-30] MEDS: ENOXAPARIN 40 MG/0.4 ML SYRINGE SUBCUT SCH (20:47)
[2020-07-30] MEDS: AMITRIPTYLINE 10 MG TABLET PO SCH (20:47)
[2020-07-31] MEDS: INSULIN LISPRO 100 UNIT/ML SUBCUT SCH ×6 (00:05→20:25)
[2020-07-31] MEDS: ALBUTEROL/IPRATROPIUM 3 ML NEB RESP TX SCH ×4 (00:53→19:19)
[2020-07-31] MEDS: PIPERACILLIN/TAZOBACTAM 3,375 MG in SODIUM CHLORIDE 0.9% 100 ML IV SCH ×2 (01:21→08:48)
[2020-07-31 02:39] LABS: ABG Base Excess 6.6 MMOL/L (-2.5-2.5); ABG HCO3 30.4 MMOL/L (20-26); ABG Oxygen Saturation 96.8 % (95-100); ABG PCO2 55.8 MM HG (35-48); ABG PH 7.382 (7.35-7.45); ABG PO2 88.5 MM HG (80-95); ABG TCO2 30.1 MMOL/L (23-27); Allen Test Positive
[2020-07-31 04:05] LABS: Basophils % 0.3 % (0.0-0.8); Eosinophils # 0.3 10*3/uL (0.0-0.87); Eosinophils % 2.3 % (0.00-10.9); Hematocrit 36.5 VOL% (35.7-47.0); Hemoglobin 11.2 GM/DL (12.0-16.0); Immature Granulocytes % 5.1 %; Immature Granulocytes Absolute 0.72 #; Lymphocytes # 2.6 10*3/uL (1.4-4.0); Lymphocytes % 18.1 % (21.3-54.2); Mean Corpuscular HGB Conc 30.7 GM/DL (32-36); Mean Corpuscular Volume 87.1 FL (87-102); Mean Platelet Volume 10.4 FL (9.6-12.0); Monocytes % 5.4 % (1.7-12.7); Neutrophils % 68.8 % (38.7-73.9); Platelet Count 277 T/CUMM (130-400); Red Blood Count 4.19 MC/CUMM (3.8-5.5); Red Cell Distribution Width 13.2 % (9.3-17.3); White Blood Count 14.3 T/CUMM (4-12)
[2020-07-31 04:29] LABS: Albumin 2.2 G/DL (3.4-5.0); Bilirubin,Total 0.6 MG/DL (0.2-1.0); Calcium 9.3 MG/DL (8.5-10.1); Osmolality,Calculated 306.6 MOS/KG (273-304); Total Protein 7.9 G/DL (6.4-8.3)
[2020-07-31 04:33] LABS: Eosinophils 2 % (0-10); Hypochromasia 1+; Lymphocytes 17 % (20-55); Microcytosis 1+; Segmented Neutrophils 76 % (50-85); Total Cells Counted 100
[2020-07-31 04:34] LABS: Platelet Estimate Normal
[2020-07-31] MEDS: HALOPERIDOL 5 MG/ML AMP IM PRN ×2 (08:30→15:22)
[2020-07-31] MEDS: DOCUSATE SODIUM 100 MG/10 ML UDCUP NG SCH (08:48)
[2020-07-31] MEDS: FUROSEMIDE 40 MG/4 ML VIAL IV SCH ×2 (08:48→17:08)
[2020-07-31] MEDS: PANTOPRAZOLE 40 MG VIAL IV SCH (08:49)
[2020-07-31] MEDS: DEXAMETHASONE 4 MG/1 ML VIAL IV SCH ×2 (08:49→20:33)
[2020-07-31] MEDS: amLODIPine 5 MG TABLET PO SCH (08:49)
[2020-07-31] MEDS: MONTELUKAST 10 MG TABLET PO SCH (08:49)
[2020-07-31] MEDS: allopurinoL 100 MG TABLET PO SCH (08:49)
[2020-07-31] MEDS: INSULIN GLARGINE 100 UNIT/ML SUBCUT SCH ×3 (08:49→20:26)
[2020-07-31] MEDS: FLUTICASONE 50 MCG NASAL SPRAY 16 GM BOTTLE BOTH NARES SCH (08:49)
[2020-07-31] MEDS: POTASSIUM CHLORIDE RIDER 10 MEQ in PREMIX 1 EACH IV PRN ×3 (10:30→12:30)
[2020-07-31] MEDS ORDERED: cefTRIAXone 1,000 MG in SYRINGE 1 EACH IV SCH ×2 (11:30→12:00)
[2020-07-31] MEDS: QUEtiapine 25 MG TABLET PO SCH ×2 (12:00→20:27)
[2020-07-31] MEDS ORDERED: VANCOMYCIN INJ 2,250 MG in SODIUM CHLORIDE 0.9% 500 ML IV ONE (14:00)
[2020-07-31] MEDS: ENOXAPARIN 40 MG/0.4 ML SYRINGE SUBCUT SCH (20:26)
[2020-07-31] MEDS: AMITRIPTYLINE 10 MG TABLET PO SCH (20:26)
[2020-08-01] MEDS: INSULIN LISPRO 100 UNIT/ML SUBCUT SCH ×7 (00:48→23:54)
[2020-08-01] MEDS: ALBUTEROL/IPRATROPIUM 3 ML NEB RESP TX SCH ×4 (01:07→19:25)
[2020-08-01 04:10] LABS: Basophils % 0.3 % (0.0-0.8); Eosinophils # 0.2 10*3/uL (0.0-0.87); Eosinophils % 1.5 % (0.00-10.9); Hemoglobin 10.7 GM/DL (12.0-16.0); Immature Granulocytes % 4.4 %; Immature Granulocytes Absolute 0.46 #; Lymphocytes # 1.5 10*3/uL (1.4-4.0); Mean Corpuscular HGB Conc 30.6 GM/DL (32-36); Mean Corpuscular Volume 87.7 FL (87-102); Mean Platelet Volume 10.9 FL (9.6-12.0); Monocytes % 3.6 % (1.7-12.7); Neutrophils % 76.2 % (38.7-73.9); Platelet Count 258 T/CUMM (130-400); Red Blood Count 3.99 MC/CUMM (3.8-5.5); White Blood Count 10.5 T/CUMM (4-12)
[2020-08-01 05:11] LABS: Alanine Aminotransferase 46 U/L (13-56); Albumin 2.2 G/DL (3.4-5.0); Alkaline Phosphatase 169 U/L (45-117); Aspartate Amino Transferase 28 U/L (0-37); Bilirubin,Direct < 0.100 MG/DL (0.0-0.20); Bilirubin,Indirect 0.3 MG/DL (0.0-1.0); Bilirubin,Total < 0.39 MG/DL (0.2-1.0); Blood Urea Nitrogen 46 MG/DL (7-18); Calcium 9.2 MG/DL (8.5-10.1); Estimated Glom Filtration Rate 66 ML/MIN; Glucose 208 MG/DL (74-106); Osmolality,Calculated 303.8 MOS/KG (273-304); Total Protein 7.9 G/DL (6.4-8.3)
[2020-08-01] MEDS: QUEtiapine 25 MG TABLET PO SCH ×2 (10:06→20:31)
[2020-08-01] MEDS: MONTELUKAST 10 MG TABLET PO SCH (10:06)
[2020-08-01] MEDS: INSULIN GLARGINE 100 UNIT/ML SUBCUT SCH ×3 (10:07→20:30)
[2020-08-01] MEDS: DOCUSATE SODIUM 100 MG/10 ML UDCUP NG SCH (10:07)
[2020-08-01] MEDS: allopurinoL 100 MG TABLET PO SCH (10:07)
[2020-08-01] MEDS: POLYETHYLENE GLYCOL POWDER 17 GM PACK PO PRN (10:07)
[2020-08-01] MEDS: FLUTICASONE 50 MCG NASAL SPRAY 16 GM BOTTLE BOTH NARES SCH (10:07)
[2020-08-01] MEDS: amLODIPine 5 MG TABLET PO SCH (10:07)
[2020-08-01] MEDS: PANTOPRAZOLE 40 MG VIAL IV SCH (10:09)
[2020-08-01] MEDS: FUROSEMIDE 40 MG/4 ML VIAL IV SCH ×2 (10:10→17:00)
[2020-08-01] MEDS: DEXAMETHASONE 4 MG/1 ML VIAL IV SCH ×2 (10:12→20:32)
[2020-08-01] MEDS: VANCOMYCIN INJ 1,500 MG in SODIUM CHLORIDE 0.9% 500 ML IV SCH (14:17)
[2020-08-01] MEDS: ENOXAPARIN 40 MG/0.4 ML SYRINGE SUBCUT SCH (20:30)
[2020-08-01] MEDS: AMITRIPTYLINE 10 MG TABLET PO SCH (20:31)
[2020-08-01] MEDS: HALOPERIDOL 5 MG/ML AMP IM PRN (23:42)
[2020-08-02] MEDS: ALBUTEROL/IPRATROPIUM 3 ML NEB RESP TX SCH ×4 (00:22→19:58)
[2020-08-02] MEDS: INSULIN LISPRO 100 UNIT/ML SUBCUT SCH ×5 (04:54→20:55)
[2020-08-02] MEDS: HALOPERIDOL 5 MG/ML AMP IM PRN (06:36)
[2020-08-02] MEDS ORDERED: ALBUTEROL/IPRATROPIUM 3 ML NEB RESP TX ONE (08:00)
[2020-08-02] MEDS: PANTOPRAZOLE 40 MG VIAL IV SCH (09:10)
[2020-08-02] MEDS: INSULIN GLARGINE 100 UNIT/ML SUBCUT SCH ×2 (09:10→20:54)
[2020-08-02] MEDS: DEXAMETHASONE 4 MG/1 ML VIAL IV SCH ×2 (09:10→20:54)
[2020-08-02] MEDS: FUROSEMIDE 40 MG/4 ML VIAL IV SCH ×2 (09:12→16:30)
[2020-08-02] MEDS: MONTELUKAST 10 MG TABLET PO SCH (09:15)
[2020-08-02] MEDS: allopurinoL 100 MG TABLET PO SCH (09:15)
[2020-08-02] MEDS: amLODIPine 5 MG TABLET PO SCH (09:15)
[2020-08-02] MEDS: QUEtiapine 25 MG TABLET PO SCH ×2 (09:15→20:54)
[2020-08-02] MEDS: FLUTICASONE 50 MCG NASAL SPRAY 16 GM BOTTLE BOTH NARES SCH (09:20)
[2020-08-02] MEDS: DOCUSATE SODIUM 100 MG/10 ML UDCUP NG SCH (10:15)
[2020-08-02] MEDS: VANCOMYCIN INJ 1,500 MG in SODIUM CHLORIDE 0.9% 500 ML IV SCH (13:30)
[2020-08-02] MEDS: ENOXAPARIN 40 MG/0.4 ML SYRINGE SUBCUT SCH (20:53)
[2020-08-02] MEDS: AMITRIPTYLINE 10 MG TABLET PO SCH (20:54)
[2020-08-03] MEDS: INSULIN LISPRO 100 UNIT/ML SUBCUT SCH ×7 (00:57→23:43)
[2020-08-03] MEDS: ALBUTEROL/IPRATROPIUM 3 ML NEB RESP TX SCH ×4 (01:10→19:04)
[2020-08-03 04:33] LABS: Basophils % 0.3 % (0.0-0.8); Eosinophils % 0.3 % (0.00-10.9); Hematocrit 31.7 VOL% (35.7-47.0); Immature Granulocytes % 3.9 %; Immature Granulocytes Absolute 0.43 #; Lymphocytes # 1.3 10*3/uL (1.4-4.0); Lymphocytes % 11.5 % (21.3-54.2); Mean Corpuscular HGB Conc 31.5 GM/DL (32-36); Mean Corpuscular Volume 85.4 FL (87-102); Mean Platelet Volume 10.6 FL (9.6-12.0); Monocytes % 4.1 % (1.7-12.7); Neutrophils % 79.9 % (38.7-73.9); Platelet Count 296 T/CUMM (130-400); Red Blood Count 3.71 MC/CUMM (3.8-5.5); Red Cell Distribution Width 12.8 % (9.3-17.3)
[2020-08-03 04:46] LABS: Calcium 9.2 MG/DL (8.5-10.1); Osmolality,Calculated 286.1 MOS/KG (273-304)
[2020-08-03] MEDS: INSULIN GLARGINE 100 UNIT/ML SUBCUT SCH ×2 (09:15→20:55)
[2020-08-03] MEDS: PANTOPRAZOLE 40 MG VIAL IV SCH (09:20)
[2020-08-03] MEDS: FUROSEMIDE 40 MG/4 ML VIAL IV SCH ×2 (09:20→18:00)
[2020-08-03] MEDS: DEXAMETHASONE 4 MG/1 ML VIAL IV SCH ×2 (09:20→20:55)
[2020-08-03] MEDS: MONTELUKAST 10 MG TABLET PO SCH (09:25)
[2020-08-03] MEDS: QUEtiapine 25 MG TABLET PO SCH ×2 (09:25→20:55)
[2020-08-03] MEDS: allopurinoL 100 MG TABLET PO SCH (09:25)
[2020-08-03] MEDS: DOCUSATE SODIUM 100 MG/10 ML UDCUP NG SCH (09:25)
[2020-08-03] MEDS: amLODIPine 5 MG TABLET PO SCH (09:25)
[2020-08-03] MEDS: FLUTICASONE 50 MCG NASAL SPRAY 16 GM BOTTLE BOTH NARES SCH (09:30)
[2020-08-03] MEDS: VANCOMYCIN INJ 1,500 MG in SODIUM CHLORIDE 0.9% 500 ML IV SCH (14:00)
[2020-08-03] MEDS: POLYETHYLENE GLYCOL POWDER 17 GM PACK PO PRN (15:45)
[2020-08-03] MEDS: ENOXAPARIN 40 MG/0.4 ML SYRINGE SUBCUT SCH (20:55)
[2020-08-03] MEDS: AMITRIPTYLINE 10 MG TABLET PO SCH (20:55)
[2020-08-04] MEDS: ALBUTEROL/IPRATROPIUM 3 ML NEB RESP TX SCH ×4 (00:22→19:05)
[2020-08-04] MEDS: VANCOMYCIN INJ 1,500 MG in SODIUM CHLORIDE 0.9% 500 ML IV SCH (03:28)
[2020-08-04] MEDS ORDERED: ACETAMINOPHEN 325 MG TABLET PO PRN (03:28)
[2020-08-04] MEDS ORDERED: ACETAMINOPHEN 325 MG TABLET ONE (03:29)
[2020-08-04] MEDS: INSULIN LISPRO 100 UNIT/ML SUBCUT SCH ×3 (06:10→18:13)
[2020-08-04] MEDS: INSULIN GLARGINE 100 UNIT/ML SUBCUT SCH ×2 (08:32→21:09)
[2020-08-04] MEDS: DOCUSATE SODIUM 100 MG/10 ML UDCUP NG SCH (08:32)
[2020-08-04] MEDS: PANTOPRAZOLE 40 MG VIAL IV SCH (08:32)
[2020-08-04] MEDS: amLODIPine 5 MG TABLET PO SCH (08:32)
[2020-08-04] MEDS: FLUTICASONE 50 MCG NASAL SPRAY 16 GM BOTTLE BOTH NARES SCH (08:32)
[2020-08-04] MEDS: FUROSEMIDE 40 MG/4 ML VIAL IV SCH ×2 (08:32→16:48)
[2020-08-04] MEDS: allopurinoL 100 MG TABLET PO SCH (08:33)
[2020-08-04] MEDS: DEXAMETHASONE 4 MG/1 ML VIAL IV SCH ×2 (08:33→21:09)
[2020-08-04] MEDS: QUEtiapine 25 MG TABLET PO SCH ×2 (08:33→21:10)
[2020-08-04] MEDS: MONTELUKAST 10 MG TABLET PO SCH (08:33)
[2020-08-04] MEDS: ENOXAPARIN 40 MG/0.4 ML SYRINGE SUBCUT SCH (21:10)
[2020-08-04] MEDS: AMITRIPTYLINE 10 MG TABLET PO SCH (21:10)
[2020-08-05] MEDS: INSULIN LISPRO 100 UNIT/ML SUBCUT SCH ×4 (00:29→18:06)
[2020-08-05] MEDS: ALBUTEROL/IPRATROPIUM 3 ML NEB RESP TX SCH ×4 (01:18→19:13)
[2020-08-05 03:23] LABS: Basophils % 0.4 % (0.0-0.8); Eosinophils # 0.2 10*3/uL (0.0-0.87); Eosinophils % 1.8 % (0.00-10.9); Hematocrit 32.6 VOL% (35.7-47.0); Hemoglobin 10.2 GM/DL (12.0-16.0); Immature Granulocytes Absolute 0.22 #; Lymphocytes # 2.7 10*3/uL (1.4-4.0); Lymphocytes % 24.8 % (21.3-54.2); Mean Corpuscular HGB Conc 31.3 GM/DL (32-36); Mean Corpuscular Volume 86.5 FL (87-102); Mean Platelet Volume 10.4 FL (9.6-12.0); Monocytes % 6.6 % (1.7-12.7); Neutrophils % 64.4 % (38.7-73.9); Platelet Count 324 T/CUMM (130-400); Red Blood Count 3.77 MC/CUMM (3.8-5.5); Red Cell Distribution Width 13.5 % (9.3-17.3); White Blood Count 10.8 T/CUMM (4-12)
[2020-08-05 03:34] LABS: Calcium 9.3 MG/DL (8.5-10.1); Osmolality,Calculated 282.7 MOS/KG (273-304)
[2020-08-05] MEDS: POTASSIUM CHLORIDE RIDER 10 MEQ in PREMIX 1 EACH IV PRN ×4 (07:13→10:29)
[2020-08-05] MEDS: FUROSEMIDE 40 MG/4 ML VIAL IV SCH ×2 (09:00→18:06)
[2020-08-05] MEDS: PANTOPRAZOLE 40 MG VIAL IV SCH (09:18)
[2020-08-05] MEDS: amLODIPine 5 MG TABLET PO SCH (09:18)
[2020-08-05] MEDS: DOCUSATE SODIUM 100 MG/10 ML UDCUP NG SCH (09:18)
[2020-08-05] MEDS: MONTELUKAST 10 MG TABLET PO SCH (09:18)
[2020-08-05] MEDS: allopurinoL 100 MG TABLET PO SCH (09:18)
[2020-08-05] MEDS: QUEtiapine 25 MG TABLET PO SCH ×2 (09:18→21:53)
[2020-08-05] MEDS: FLUTICASONE 50 MCG NASAL SPRAY 16 GM BOTTLE BOTH NARES SCH (09:18)
[2020-08-05] MEDS: INSULIN GLARGINE 100 UNIT/ML SUBCUT SCH ×2 (09:18→21:54)
[2020-08-05] MEDS: DEXAMETHASONE 4 MG/1 ML VIAL IV SCH ×2 (09:18→22:15)
[2020-08-05] MEDS: VANCOMYCIN INJ 1,500 MG in SODIUM CHLORIDE 0.9% 500 ML IV SCH (13:30)
[2020-08-05] MEDS: GABAPENTIN 300 MG CAPSULE PO PRN (21:53)
[2020-08-05] MEDS: POTASSIUM CHLORIDE 10 MEQ TABLET PO SCH (21:53)
[2020-08-05] MEDS: AMITRIPTYLINE 10 MG TABLET PO SCH (21:54)
[2020-08-05] MEDS: ENOXAPARIN 40 MG/0.4 ML SYRINGE SUBCUT SCH (21:54)
[2020-08-06] MEDS: ALBUTEROL/IPRATROPIUM 3 ML NEB RESP TX SCH ×4 (00:17→19:24)
[2020-08-06 06:32] LABS: Basophils # 0.1 10*3/uL (0.0-0.2); Basophils % 0.5 % (0.0-0.8); Eosinophils % 0.1 % (0.00-10.9); Hematocrit 32.4 VOL% (35.7-47.0); Hemoglobin 10.2 GM/DL (12.0-16.0); Immature Granulocytes % 2.6 %; Immature Granulocytes Absolute 0.27 #; Lymphocytes # 1.3 10*3/uL (1.4-4.0); Lymphocytes % 12.7 % (21.3-54.2); Mean Corpuscular HGB Conc 31.5 GM/DL (32-36); Mean Corpuscular Volume 86.9 FL (87-102); Mean Platelet Volume 10.6 FL (9.6-12.0); Monocytes % 4.3 % (1.7-12.7); Neutrophils % 79.8 % (38.7-73.9); Platelet Count 323 T/CUMM (130-400); Red Blood Count 3.73 MC/CUMM (3.8-5.5); Red Cell Distribution Width 13.4 % (9.3-17.3); White Blood Count 10.3 T/CUMM (4-12)
[2020-08-06 06:49] LABS: Calcium 9.4 MG/DL (8.5-10.1); Osmolality,Calculated 286.4 MOS/KG (273-304)
[2020-08-06] MEDS: amLODIPine 5 MG TABLET PO SCH (10:03)
[2020-08-06] MEDS: POTASSIUM CHLORIDE 10 MEQ TABLET PO SCH ×2 (10:03→20:42)
[2020-08-06] MEDS: QUEtiapine 25 MG TABLET PO SCH ×2 (10:03→20:26)
[2020-08-06] MEDS: DOCUSATE SODIUM 100 MG/10 ML UDCUP NG SCH (10:03)
[2020-08-06] MEDS: MONTELUKAST 10 MG TABLET PO SCH (10:04)
[2020-08-06] MEDS: INSULIN GLARGINE 100 UNIT/ML SUBCUT SCH (10:04)
[2020-08-06] MEDS: allopurinoL 100 MG TABLET PO SCH (10:04)
[2020-08-06] MEDS: INSULIN LISPRO 100 UNIT/ML SUBCUT SCH ×6 (10:04→20:39)
[2020-08-06] MEDS: PANTOPRAZOLE 40 MG VIAL IV SCH (10:05)
[2020-08-06] MEDS: FUROSEMIDE 40 MG/4 ML VIAL IV SCH ×2 (10:12→17:52)
[2020-08-06] MEDS: DEXAMETHASONE 4 MG/1 ML VIAL IV SCH ×2 (10:16→20:38)
[2020-08-06] MEDS: FLUTICASONE 50 MCG NASAL SPRAY 16 GM BOTTLE BOTH NARES SCH (10:20)
[2020-08-06] MEDS ORDERED: INSULIN LISPRO 100 UNIT/ML SUBCUT SCH (11:30)
[2020-08-06] MEDS: POLYETHYLENE GLYCOL POWDER 17 GM PACK PO PRN (17:52)
[2020-08-06] MEDS: AMITRIPTYLINE 10 MG TABLET PO SCH (20:26)
[2020-08-06] MEDS: ENOXAPARIN 40 MG/0.4 ML SYRINGE SUBCUT SCH (20:26)
[2020-08-06] MEDS: GABAPENTIN 300 MG CAPSULE PO PRN (20:26)
[2020-08-06] MEDS ORDERED: INSULIN GLARGINE 100 UNIT/ML SUBCUT SCH (21:00)
[2020-08-07] MEDS: INSULIN LISPRO 100 UNIT/ML SUBCUT SCH ×5 (01:21→12:37)
[2020-08-07] MEDS: ALBUTEROL/IPRATROPIUM 3 ML NEB RESP TX SCH ×2 (01:40→07:33)
[2020-08-07] MEDS: VANCOMYCIN INJ 1,500 MG in SODIUM CHLORIDE 0.9% 500 ML IV SCH (02:50)
[2020-08-07 05:28] LABS: Basophils % 0.2 % (0.0-0.8); Eosinophils % 0.2 % (0.00-10.9); Hematocrit 27.8 VOL% (35.7-47.0); Immature Granulocytes % 2.1 %; Immature Granulocytes Absolute 0.18 #; Lymphocytes # 1.3 10*3/uL (1.4-4.0); Lymphocytes % 14.9 % (21.3-54.2); Mean Corpuscular HGB Conc 31.7 GM/DL (32-36); Mean Corpuscular Volume 86.1 FL (87-102); Mean Platelet Volume 10.2 FL (9.6-12.0); Monocytes % 5.8 % (1.7-12.7); Neutrophils % 76.8 % (38.7-73.9); Platelet Count 306 T/CUMM (130-400); Red Blood Count 3.23 MC/CUMM (3.8-5.5); Red Cell Distribution Width 13.5 % (9.3-17.3); White Blood Count 8.5 T/CUMM (4-12)
[2020-08-07 05:41] LABS: Hemoglobin 8.8 GM/DL (12.0-16.0)
[2020-08-07 05:42] LABS: Calcium 8.7 MG/DL (8.5-10.1); Osmolality,Calculated 289.7 MOS/KG (273-304)
[2020-08-07] MEDS: allopurinoL 100 MG TABLET PO SCH (09:29)
[2020-08-07] MEDS: POTASSIUM CHLORIDE 10 MEQ TABLET PO SCH (09:29)
[2020-08-07] MEDS: DOCUSATE SODIUM 100 MG/10 ML UDCUP NG SCH ×2 (09:29→09:32)
[2020-08-07] MEDS: MONTELUKAST 10 MG TABLET PO SCH (09:29)
[2020-08-07] MEDS: FLUTICASONE 50 MCG NASAL SPRAY 16 GM BOTTLE BOTH NARES SCH (09:30)
[2020-08-07] MEDS: QUEtiapine 25 MG TABLET PO SCH (09:30)
[2020-08-07] MEDS: PANTOPRAZOLE 40 MG VIAL IV SCH (09:30)
[2020-08-07] MEDS: DEXAMETHASONE 4 MG/1 ML VIAL IV SCH (09:30)
[2020-08-07] MEDS: FUROSEMIDE 40 MG/4 ML VIAL IV SCH (09:30)
[2020-08-07] MEDS: amLODIPine 5 MG TABLET PO SCH (09:30)
[2020-08-07 12:12] VITALS: BP 128/78
== END 2020-08-07 14:20 | disposition home health service (06) | DRG 3 ==
LOC: N.OR 06:42 → N.SDSINP 06:44 → N.ICU 14:28 → N.TELEN 08-05 17:12
PROVIDERS: ADMIT Otolaryngology; ATTEND Otolaryngology